=== PATIENT | female | born 1990 | race Caucasian/White ===

== ENCOUNTER 2018-08-21 19:16 | Emergency (ER) | payer OTHER ==
[~2018-08-21] VITALS: Ht 172.7 cm; Wt 150.0 kg
[2018-08-21 19:23] VITALS: Ht 172.7 cm; Wt 150.0 kg
[2018-08-21] MEDS ORDERED: HYDRALAZINE HCL25 MG PO (19:24)
[2018-08-21] MEDS ORDERED: NORVASC10 MG PO (19:24)
[2018-08-21 20:52] LABS: BASOPHILS 0.2 % (0-2); EOSINOPHILS 2.9 % (0-7); HEMATOCRIT 36.2 % (36.0-48.0); IMMATURE GRANULOCYTES 0.2 % (0-5); LYMPHOCYTES 13.6 % (15-50); MCH 26.8 pg (26.0-34.0); MCHC 33.1 g/dL (31.0-37.0); MEAN PLATELET VOLUME 10.2 fL (7.4-10.4); MONOCYTES 7.2 % (2-11); NEUTROPHILS 75.9 % (40-80); PLATELET COUNT 240 10x3/uL (130-400); RBC 4.47 10x6/uL (4.00-5.40); RDW 14.9 % (11.5-14.5); WBC 6.6 10x3/uL (4.8-10.8)
[2018-08-21 21:13] LABS: ALBUMIN 3.5 g/dL (3.4-5.0); ALKALINE PHOSPHATASE 56 U/L (46-116); ALT (SGPT) 32 U/L (10-68); CALC OSMOLALITY 282 mosm/kg (275-300); CALCIUM 8.8 mg/dL (8.5-10.1); CARBON DIOXIDE 27.4 mmol/L (21.0-32.0); CHLORIDE - SERUM 106 mmol/L (98-107); CREATININE - SERUM 0.9 mg/dL (0.6-1.3); GLUCOSE 85 mg/dL (74-106); POTASSIUM - SERUM 3.8 mmol/L (3.5-5.1); PROTEIN - SERUM 6.9 g/dL (6.4-8.2); SODIUM 143 mmol/L (136-145); TROPONIN-I < 0.017 ng/mL (0.000-0.060); UREA NITROGEN 9 mg/dL (7-18); eGFR NON AFRICAN AMERICAN 80 mL/min (90-120)
[2018-08-21 22:03] VITALS: BP 115/63
== END 2018-08-21 22:04 | disposition home or self-care (01) ==
LOC: D.ER 19:16
PROVIDERS: Family Medicine
DX: I10 Essential (primary) hypertension (principal)

== ENCOUNTER 2018-09-03 03:46 | Emergency (ER) | payer OTHER ==
[~2018-09-03] VITALS: Ht 172.7 cm; Wt 150.0 kg
[~2018-09-03 03:46] MED LIST: HYDRALAZINE HCL25 MG PO; NORVASC10 MG PO
[2018-09-03 03:47] VITALS: Ht 172.7 cm; Wt 150.0 kg
[2018-09-03] MEDS ORDERED: KLONOPIN0.5 MG PO (03:49)
[2018-09-03] MEDS ORDERED: OMEPRAZOLE20 M1 PO (03:49)
[2018-09-03] MEDS ORDERED: BYSTOLIC5 MG PO (03:49)
[2018-09-03] MEDS ORDERED: CELEXA10 MG (03:50)
[2018-09-03] MEDS ORDERED: AMBIEN10 MG (03:50)
[2018-09-03 04:49] LABS: BASOPHILS 0 % (0-2); EOSINOPHILS 1.5 % (0-7); HEMATOCRIT 38.9 % (36.0-48.0); HEMOGLOBIN 12.8 g/dL (12-16); IMMATURE GRANULOCYTES 0.1 % (0-5); LYMPHOCYTES 8.6 % (15-50); MCH 26.5 pg (26.0-34.0); MCHC 32.9 g/dL (31.0-37.0); MCV 80.5 fL (80.0-100.0); MEAN PLATELET VOLUME 10.9 fL (7.4-10.4); MONOCYTES 5.3 % (2-11); NEUTROPHILS 84.5 % (40-80); PLATELET COUNT 260 10x3/uL (130-400); RBC 4.83 10x6/uL (4.00-5.40); RDW 14.7 % (11.5-14.5); WBC 6.8 10x3/uL (4.8-10.8)
[2018-09-03 05:06] LABS: ALBUMIN 3.4 g/dL (3.4-5.0); ALKALINE PHOSPHATASE 59 U/L (46-116); ALT (SGPT) 26 U/L (10-68); BILIRUBIN - TOTAL 0.45 mg/dL (0.2-1.3); CALC OSMOLALITY 280 mosm/kg (275-300); CALCIUM 8.6 mg/dL (8.5-10.1); CARBON DIOXIDE 26.7 mmol/L (21.0-32.0); CHLORIDE - SERUM 104 mmol/L (98-107); CREATININE - SERUM 0.9 mg/dL (0.6-1.3); GLUCOSE 117 mg/dL (74-106); POTASSIUM - SERUM 3.5 mmol/L (3.5-5.1); PROTEIN - SERUM 6.9 g/dL (6.4-8.2); SODIUM 141 mmol/L (136-145); UREA NITROGEN 10 mg/dL (7-18); eGFR NON AFRICAN AMERICAN 80 mL/min (90-120)
[2018-09-03] MEDS ORDERED: CHRONULAC30 ML PO (05:58)
[2018-09-03] MEDS ORDERED: PREDNISONE20 MG PO (05:58)
[2018-09-03 06:27] VITALS: BP 139/87
[2018-09-07 13:44] VITALS: Ht 172.7 cm; Wt 150.0 kg
== END 2018-09-03 06:27 | disposition home or self-care (01) ==
LOC: D.ER 03:46
PROVIDERS: Family Medicine
DX: L50.9 Urticaria, unspecified (principal); K59.00 Constipation, unspecified

== ENCOUNTER → 2018-09-04 13:07 | Outpatient (CLI) | payer OTHER ==
[2018-09-03 03:47] VITALS: BMI 50.2
[~2018-09-04 13:07] MED LIST changes: +AMBIEN10 MG PO; +BYSTOLIC5 MG PO; +CARAFATE1 G PO; +CELEXA10 MG PO; +CHRONULAC30 ML PO; +KLONOPIN0.5 MG PO; +LINZESS145 MCG PO; +OMEPRAZOLE20 M1 PO; +PREDNISONE20 MG PO
[2018-09-07 13:44] VITALS: BMI 48.6
== END | disposition home or self-care (01) ==
LOC: D.RAD 13:07
PROVIDERS: ATTEND Internal Medicine Gastroenterology
DX: K59.00 Constipation, unspecified (principal)

== ENCOUNTER 2018-09-05 10:29 | Inpatient (IN) | payer OTHER ==
[~2018-09-05] VITALS: Ht 172.7 cm; Wt 145.1 kg
[~2018-09-05 10:29] MED LIST changes: -CARAFATE1 G PO; -LINZESS145 MCG PO
[2018-09-05 11:56] LABS: BASOPHILS 0.3 % (0-2); EOSINOPHILS 3.7 % (0-7); HEMATOCRIT 38.5 % (36.0-48.0); HEMOGLOBIN 12.6 g/dL (12-16); IMMATURE GRANULOCYTES 0.1 % (0-5); LYMPHOCYTES 12.6 % (15-50); MCH 26.5 pg (26.0-34.0); MCHC 32.7 g/dL (31.0-37.0); MCV 81.1 fL (80.0-100.0); MEAN PLATELET VOLUME 10.6 fL (7.4-10.4); MONOCYTES 7.5 % (2-11); NEUTROPHILS 75.8 % (40-80); PLATELET COUNT 269 10x3/uL (130-400); RBC 4.75 10x6/uL (4.00-5.40); WBC 7.6 10x3/uL (4.8-10.8)
[2018-09-05 12:20] VITALS: BP 152/74; BMI 48.7
[2018-09-05 12:20] LABS: ALBUMIN 3.8 g/dL (3.4-5.0); ANION GAP 10.1 mmol/L (8-16); BILIRUBIN - TOTAL 0.46 mg/dL (0.2-1.3); CALCIUM 8.8 mg/dL (8.5-10.1); CARBON DIOXIDE 29.6 mmol/L (21.0-32.0); POTASSIUM - SERUM 3.7 mmol/L (3.5-5.1); PROTEIN - SERUM 7.4 g/dL (6.4-8.2)
--- NOTE | 2018-09-05 13:28 | NUR ---
PER DR RAM NEW ORDER FOR MORPHINE 1 MG Q 4 HOURS PRN. ORDER NOTED.
[2018-09-05 19:44] VITALS: BP 154/74
--- NOTE | 2018-09-05 19:53 | NUR ---
EVENING ROUNDS COMPLETED. REPORT RECEIVED. PT SITTING UP IN BED WITH EYES OPEN, RR EVEN AND UNLABORED. PT HAS REQUESTED A JACOBSON CATHETER PLACEMENT AND HAS BEEN ORDERED BY DR TERRY. PT REQUESTED TO HAVE A FEMALE PLACE THE CATHETER, THEREFORE LUCY BATEMAN LPN HAS ENTERED ROOM TO PLACE CATHETER. PT DENIES FURTHER NEEDS AT THIS TIME. CENTRAL LINE PLACED AND PLACEMENT VERIFIED BY DR WHYTE. CALL LIGHT IN REACH. WILL CTM.
[2018-09-05 20:00] VITALS: BP 133/86
[2018-09-05 20:49] LABS: HCG URINE NEGATIVE (NEGATIVE)
[2018-09-05 22:00] VITALS: BP 139/81
[2018-09-06 04:00] VITALS: BP 130/79
[2018-09-06 04:26] LABS: BASOPHILS 0.4 % (0-2); EOSINOPHILS 2.1 % (0-7); HEMATOCRIT 35.8 % (36.0-48.0); HEMOGLOBIN 11.4 g/dL (12-16); LYMPHOCYTES 13.5 % (15-50); MCHC 31.8 g/dL (31.0-37.0); MCV 81.5 fL (80.0-100.0); MEAN PLATELET VOLUME 10.5 fL (7.4-10.4); MONOCYTES 8.7 % (2-11); NEUTROPHILS 75.3 % (40-80); PLATELET COUNT 227 10x3/uL (130-400); RBC 4.39 10x6/uL (4.00-5.40)
[2018-09-06 04:27] LABS: WBC 5.6 10x3/uL (4.8-10.8)
--- NOTE | 2018-09-06 04:37 | NUR ---
I have reviewed this patient and I concur with the Shift Assessment completed by the Licensed Practical Nurse today this shift.
[2018-09-06 04:52] LABS: ALBUMIN 3.4 g/dL (3.4-5.0); ALKALINE PHOSPHATASE 77 U/L (46-116); ALT (SGPT) 41 U/L (10-68); BILIRUBIN - TOTAL 0.57 mg/dL (0.2-1.3); CALC OSMOLALITY 285 mosm/kg (275-300); CARBON DIOXIDE 27.9 mmol/L (21.0-32.0); CHLORIDE - SERUM 108 mmol/L (98-107); CREATININE - SERUM 0.8 mg/dL (0.6-1.3); GLUCOSE 94 mg/dL (74-106); POTASSIUM - SERUM 3.8 mmol/L (3.5-5.1); PROTEIN - SERUM 6.6 g/dL (6.4-8.2); SODIUM 144 mmol/L (136-145); UREA NITROGEN 10 mg/dL (7-18); eGFR NON AFRICAN AMERICAN > 90 mL/min (90-120)
--- NOTE | 2018-09-06 05:46 | NUR ---
ADMINISTERED ORDERED ANALGESIC FOR PT COMPLAINTS OF PAIN IN ABDOMEN, PT STATES PAIN OF A 7 ON A SCALE OF 0-10. PT ALSO REPORTS INTERMITTENT COMPLAINTS OF HEARTBURN BUT NO VOMITTING SO FAR. WILL NOTIFY ONCOMING NURSE PT REPORTS TAKING OMEPRAZOLE ONCE DAILY FOR HEARTBURN.
--- NOTE | 2018-09-06 07:25 | NUR ---
RESUMING PT CARE, PT IS LAYING IN BED WITH HOB AT 35 DEGREES, ALERT AND ORIENTED X3, CALL LIGHT IN REACH. WILL CONTINUE TO MONITOR AND FOLLOW PLAN OF CARE.
--- NOTE | 2018-09-06 07:52 | NUR ---
PT C/O OF INCREASED HEARTBURN, I SPOKE TO DR TERRY AND GOT ORDERS TO CHANGE THE PROTONIX TO TID AND TO ADD CARAFATE QID. ORDERS NOTED. CT HERE TO BRING CONTRAST, WILL ADMINISTER VIA NG TUBE. CALL LIGHT IN REACH, WILL CONTINUE TO MONITOR.
--- NOTE | 2018-09-06 11:51 | NUR ---
I have reviewed this patient and I concur with the Shift Assessment completed by the Licensed Practical Nurse today this shift.
[2018-09-06 12:49] VITALS: BMI 48.6
[2018-09-06 17:26] VITALS: BP 127/58
[2018-09-06 17:36] VITALS: BP 133/60
--- NOTE | 2018-09-06 19:34 | NUR ---
EVENING ROUNDS COMPLETED. REPORT RECEIVED. PT SITTING UP IN BED WITH EYES OPEN, RR EVEN AND UNLABORED. 1600 MLS OF LIGHT YELLOW OUTPUT EMPTIED FROM JACOBSON. ORDERED FLUIDS AND ONDANSETRON INFUSING THROUGH RIGHT CHEST PICC LINE. INTRODUCED SELF TO PT. PT DENIES HAVING ANY BOWEL MOVEMENTS TODAY, ALSO DENIES HAVING ANY EPISODES OF VOMITING DURING THE DAY. PT DENIES FURTHER NEEDS OR COMPLAINTS OF PAIN. CALL LIGHT IN REACH. WILL CTM.
--- NOTE | 2018-09-06 20:05 | NUR ---
SCD'S APPLIED TO BILATERAL LOWER EXTREMITIES
[2018-09-06 21:17] VITALS: BP 136/66
--- NOTE | 2018-09-06 22:18 | NUR ---
EVENING MEDICATIONS ADMINISTERED WITHOUT ISSUE. ADMINISTERED ORDERED ANALGESIC FOR PT COMPLAINTS OF PAIN IN ABDOMEN, PT STATES PAIN OF A 6 ON A SCALE OF 0-10. SISTER AT BEDSIDE. DENIES FURTHER NEEDS AT THIS TIME. CALL LIGHT IN REACH. WILL CTM.
--- NOTE | 2018-09-07 02:40 | NUR ---
I have reviewed this patient and I concur with the Shift Assessment completed by the Licensed Practical Nurse today this shift.
--- NOTE | 2018-09-07 03:43 | NUR ---
PT SITTING UP IN BED WITH EYES CLOSED, RR EVEN AND UNLABORED. BED IN LOW POSITION. NO S/S OF DISTRESS NOTED. ORDERED IV FLUIDS INFUSING THROUGH RIGHT CHEST CENTRAL LINE. CALL LIGHT IN REACH. WILL CTM.
[2018-09-07 03:55] VITALS: BP 106/58
[2018-09-07 04:23] LABS: BASOPHILS 0.2 % (0-2); EOSINOPHILS 3.2 % (0-7); HEMATOCRIT 34.3 % (36.0-48.0); HEMOGLOBIN 11.1 g/dL (12-16); LYMPHOCYTES 17.8 % (15-50); MCH 26.3 pg (26.0-34.0); MCHC 32.4 g/dL (31.0-37.0); MCV 81.3 fL (80.0-100.0); MEAN PLATELET VOLUME 10.5 fL (7.4-10.4); MONOCYTES 8.3 % (2-11); NEUTROPHILS 70.5 % (40-80); PLATELET COUNT 205 10x3/uL (130-400); RBC 4.22 10x6/uL (4.00-5.40); RDW 14.6 % (11.5-14.5); WBC 5.6 10x3/uL (4.8-10.8)
[2018-09-07 04:39] LABS: ALBUMIN 3.2 g/dL (3.4-5.0); ALKALINE PHOSPHATASE 95 U/L (46-116); ALT (SGPT) 45 U/L (10-68); BILIRUBIN - TOTAL 0.89 mg/dL (0.2-1.3); CARBON DIOXIDE 29.3 mmol/L (21.0-32.0); CHLORIDE - SERUM 105 mmol/L (98-107); CREATININE - SERUM 0.9 mg/dL (0.6-1.3); GLUCOSE 81 mg/dL (74-106); POTASSIUM - SERUM 3.5 mmol/L (3.5-5.1); PROTEIN - SERUM 6.5 g/dL (6.4-8.2); SODIUM 143 mmol/L (136-145); eGFR NON AFRICAN AMERICAN 80 mL/min (90-120)
[2018-09-07 04:40] LABS: CALC OSMOLALITY 281 mosm/kg (275-300); UREA NITROGEN 7 mg/dL (7-18)
--- NOTE | 2018-09-07 05:11 | NUR ---
RIGHT CHEST CENTRAL LINE DRESSING CHANGED AND DATED PER FACILITY POLICY, PT RESTS COMFORTABLY IN BED WITH EYES OPEN. STATES NO EPISODES OF N/V DURING THE NIGHT. NO S/S OF DISTRESS. CALL LIGHT IN REACH. WILL CTM.
[2018-09-07 07:56] VITALS: BP 130/78
--- NOTE | 2018-09-07 11:12 | NUR ---
THIS MORNING PATIENT HAD COMPLAINED OF PAIN. TREATED HER FOR PAIN ORDERED AND PATIENT REPORTS RELIEF FROM THE DISCOMFORT IN HER LEFT ABDOMEN SHE STATES SHE DOES NOT HAVE NAUSEA AND VOMITING AT THIS TIME. TAMI JOHNSON IS INFUSING. FAMILY AT BEDSIDE. SHE IS GETTING BACK IN BED WITH ASSISTANCE AT THIS TIME. SHE HAS HAD HER SECOND BM TODAY. SHE STILL HAS A JACOBSON IN PLACE AND SHE HAD REQUESTED THE JACOBSON. WILL ASK IF SHE HAS CHANGED HER MIND ABOUT THE JACOBSON OR IF SHE WANTS TO DISCONTINUE IT. SHE IS DRINKING SPRITE AND REPORTS THAT SHE HAS BEEN HAVING THE FEELING THAT SHE JUST NEEDS TO BURP.
[2018-09-07 12:00] VITALS: BP 139/78
[2018-09-07 13:35] VITALS: BP 139/83
[2018-09-07 13:44] VITALS: Ht 172.7 cm; Wt 145.1 kg
--- NOTE | 2018-09-07 15:30 | NUR ---
PATIENT IS RESTING COMFORTABLY AT THIS TIME. DENIES ANY NEEDS AT THIS TIME.
[2018-09-07 16:00] VITALS: BP 139/76
--- NOTE | 2018-09-07 17:20 | NUR ---
PATIENT JACOBSON CATHETER REMOVED PER NURSE DRIVEN JACOBSON CATHETER REMOVAL. THE CATHETER WAS IN PLACE BECASUE THE PATIETN REQUESTED IT. HOWEVER TODAY SHE WANTED IT OUT. SHE HAS BEEN GETTING UP TO THE BATHROOM FINE ON HER OWN. 10CC OF WATER WAS REMOVED FROM THE BALLOON BEFORE REMOVAL. PATIENT TOLERATED WELL, NO DISCOMFORT NOTED. 2100 ML OF CLEAR YELLOW URINE WAS IN THE JACOBSON BAG.
--- NOTE | 2018-09-07 20:15 | NUR ---
PT SITTING UP IN BED WITH EYES OPEN, RR EVEN AND UNLABORED. BED IN LOW POSITION. NO S/S OF DISTRESS. INTRODUCED SELF TO PT. PT DENIES FURTHER NEEDS AT THIS TIME. ADMINISTERED ORDERED ANALGESIC FOR COMPLAINTS OF HEADACHE. PT STATES PAIN OF A 6 ON A SCALE OF 0-10. CALL LIGHT IN REACH. WILL CTM.
[2018-09-07 20:33] VITALS: BP 141/64
--- NOTE | 2018-09-08 01:16 | NUR ---
EVENING MEDICATIONS ADMINISTERED. ADMINISTERED ORDERED ANALGESIC FOR COMPLAINTS OF PAIN IN ABDOMEN. PT STATES PAIN OF A 9 ON A SCALE OF 0-10. MIDNIGHT BLOOD SUGAR 88. DENIES FURTHER NEEDS AT THIS TIME. CALL LIGHT IN REACH. WILL CTM.
[2018-09-08 03:55] VITALS: BP 134/81
[2018-09-08 04:37] LABS: BASOPHILS 0.2 % (0-2); EOSINOPHILS 4.2 % (0-7); HEMATOCRIT 33.8 % (36.0-48.0); HEMOGLOBIN 10.9 g/dL (12-16); LYMPHOCYTES 21.2 % (15-50); MCH 26.2 pg (26.0-34.0); MCHC 32.2 g/dL (31.0-37.0); MCV 81.3 fL (80.0-100.0); NEUTROPHILS 66.4 % (40-80); PLATELET COUNT 196 10x3/uL (130-400); RBC 4.16 10x6/uL (4.00-5.40); RDW 14.6 % (11.5-14.5); WBC 4.5 10x3/uL (4.8-10.8)
[2018-09-08 04:58] LABS: ALKALINE PHOSPHATASE 83 U/L (46-116); BILIRUBIN - TOTAL 0.69 mg/dL (0.2-1.3); CALCIUM 8.1 mg/dL (8.5-10.1); CARBON DIOXIDE 28.5 mmol/L (21.0-32.0); CHLORIDE - SERUM 108 mmol/L (98-107); CREATININE - SERUM 0.9 mg/dL (0.6-1.3); GLUCOSE 89 mg/dL (74-106); POTASSIUM - SERUM 3.5 mmol/L (3.5-5.1); PROTEIN - SERUM 6.1 g/dL (6.4-8.2); SODIUM 143 mmol/L (136-145); eGFR NON AFRICAN AMERICAN 80 mL/min (90-120)
[2018-09-08 04:59] LABS: COMPLEMENT C4 19.4 mg/dL (17.4-52.2)
[2018-09-08 05:03] LABS: ALT (SGPT) 27 U/L (10-68); CALC OSMOLALITY 280 mosm/kg (275-300); UREA NITROGEN 5 mg/dL (7-18)
--- NOTE | 2018-09-08 07:00 | NUR ---
RECEIVED REPORT. ASSUMED CARE OF PATIENT. CALL LIGHT WITHIN REACH. PATIENT RESTING IN BED, MALE VISITOR AT BEDSIDE. NO DISTRESS. IV FLUIDS TO RIGHT CHEST PICC ORDERED.
[2018-09-08 08:03] VITALS: BP 140/72
--- NOTE | 2018-09-08 08:04 | NUR ---
I have reviewed this patient and I concur with the Shift Assessment completed by the Licensed Practical Nurse today this shift.
--- NOTE | 2018-09-08 08:16 | NUR ---
BLOOD DRAW BY THIS LABORER SHAFT SINKING FOR LAB FROM CENTRAL LINE PER PROTOCOL. NO DISTRESS.
--- NOTE | 2018-09-08 10:07 | MORECARE ---
CASE MANAGEMENT DISCHARGE SUMMARY PATIENT: FEMI GARCIA UNIT: [id number] ADM DATE: 09/05/18 AGE: 28 : [birth year] SEX: F ROOM/BED: D.[facility] AUTHOR: BRIDGETT KIRKLAND PHYSICIAN: REFERRING PHYSICIAN: RANI RAM MD DATE OF SERVICE: 09/08/18 Discharge Plan Patient Name: FEMI GARCIA [facility] [facility] 1990 Planned Disposition: Home Anticipated Discharge Date: 09/10/18 Discharge Date: Expected LOS: 5 Initial Reviewer: [email or web address] Initial Review Date: 09/08/2018 Generated: 09/08/18 11:06 am DCPIA - Discharge Planning Initial Assessment Updated by [email or web address]: Karrie Yee on 09/08/18 10:05 am * Is the patient Alert and Oriented? Yes * How many steps to enter\exit or inside your home? * PCP DR. RAM * Pharmacy [facility] * Preadmission Environment Home with Family * ADLs Independent * Equipment Glucometer * List name and contact numbers for known caregivers / representatives who currently or will assist patient after discharge: JESSEE GARCIA (SISTER) [phone] * Verbal permission to speak to the caregivers and representatives has been obtained from the patient. Yes * Community resources currently utilized None * Additional services required to return to the preadmission environment? Yes * Can the patient safely return to the preadmission environment? Yes * Has this patient been hospitalized within the prior 30 days at any hospital? No Patient Name: FEMI GARCIA Page 69648 at 1007 All edits/amendments must be made on the electronic document DICTATION DATE: 09/08/18 1006 TECHNICAL SALES SUPPORT SPECIALIST: BRANDON 09/08/18 1006 RPT#: [id number] DC DATE: STATUS: ADM IN [facility] [address] [place] [address] END OF REPORT
--- NOTE | 2018-09-08 10:13 | MORECARE ---
CASE MANAGEMENT DISCHARGE SUMMARY PATIENT: FEMI GARCIA UNIT: [id number] ADM DATE: 09/05/18 AGE: 28 : [birth year] SEX: F ROOM/BED: D.2114 AUTHOR: ISAEL,DOC PHYSICIAN: REFERRING PHYSICIAN: RANI RAM MD DATE OF SERVICE: 09/08/18 Discharge Plan Patient Name: FEMI GARCIA Facility: [facility]:[place] : 1990 Planned Disposition: Home Anticipated Discharge Date: 09/10/18 Discharge Date: Expected LOS: 5 Initial Reviewer: [email or web address] Initial Review Date: 09/08/2018 Generated: 09/08/18 11:13 am Comments DCP- Discharge Planning Updated by [email or web address]: Karrie Yee on 09/08/18 9:[address] Patient Name: FEMI GARCIA Admission Status: Elective Accout number: [id number] Admission Date: 09-05-2018 : 1990 Admission Diagnosis: Attending: RANI RAM Current LOS: 3 Anticipated DC Date: 09-10-2018 Planned Disposition: Home Primary Insurance: [facility] Discharge Planning Comments: CM MET WITH PATIENT AND SISTER (JESSEE) REGARDING D/C NEEDS AND PLANS. PATIENT STATED HER MOM OR FAMILY WILL DRIVE HER HOME AT DISCHARGE. PATIENT STATED SHE HAS 2 STEPS TO ENTER HER HOME. PATIENT STATED SHE IS INDEPENDENT WITH HER CARE AND HAS A GLUCOMETER AT HOME AND CHECKS DAILY. PATIENT STATED HER PCP IS DR. RAM AND PHARMACY IS [facility]. PATIENT REFUSED HOME HEALTH AT THIS TIME. CM WILL CONTINUE TO FOLLOW PATIENT WITH D/C NEEDS AND PLANS. PCP DR. [facility] (PHARMACY) JESSEE GARCIA (SISTER) [phone] Youth Ministry Director: Karrie Yee DCPIA - Discharge Planning Initial Assessment Updated by [email or web address]: Karrie Yee on 09/08/18 10:05 am * Is the patient Alert and Oriented? Yes * How many steps to enter\exit or inside your home? * PCP DR. RAM * [facility] * Preadmission Environment Home with Family * ADLs Independent * Equipment Glucometer * List name and contact numbers for known caregivers / representatives who currently or will assist patient after discharge: JESSEE GARCIA (SISTER) [phone] * Verbal permission to speak to the caregivers and representatives has been obtained from the patient. Yes * Community resources currently utilized None * Additional services required to return to the preadmission environment? Yes * Can the patient safely return to the preadmission environment? Yes * Has this patient been hospitalized within the prior 30 days at any hospital? No Last DP export: 09/08/18 9:07 a Patient Name: FEMI GARCIA Page 31892 at 1013 All edits/amendments must be made on the electronic document DICTATION DATE: 09/08/18 1013 DRY TRANSFER MAN: BRANDON 09/08/18 1013 RPT#: [id number] DC DATE: STATUS: ADM IN [facility] [address] [place] [address] END OF REPORT
--- NOTE | 2018-09-08 12:16 | NUR ---
FSBS 96. NO INSULIN PER SLIDING SCALE.
[2018-09-08 13:25] VITALS: BP 149/57
--- NOTE | 2018-09-08 16:51 | NUR ---
MEDICATED FOR PAIN AT THIS TIME AFTER RECIEVING ORDERS FROM JOSE MADERA TO RENEW MORPHINE THAT HAD FALLEN OFF OF PATIENT EMAR.
--- NOTE | 2018-09-08 17:11 | NUR ---
FSBS 130. NO INSULIN PER SLIDING SCALE.
--- NOTE | 2018-09-08 18:32 | NUR ---
MEDICATED WITH TYLENOL FOR PAIN. PATIENT STATES THE MORPHINE DOESN'T REALLY HELP HER.
[2018-09-08 18:41] VITALS: BP 144/79
--- NOTE | 2018-09-08 19:38 | NUR ---
REPORT RECEIVED. EVENING ROUNDS COMPLETED. PT SITTING UP IN BED WITH EYES OPEN, RR EVEN AND UNLABORED. BED IN LOW POSITION. INTRODUCED SELF TO PT. PT DENIES FURTHER NEEDS, PT REPORTS NOT HAVING ANY BLOODY BOWEL MOVEMENTS DURING THE DAY NOR ANY EPISODES OF VOMITING. PT DOES REPORT SLIGHT PAIN IN LEFT SIDE OF ABDOMEN BUT CURRENTLY STATES DOES NOT REQUIRE ANALGESIC. MOTHER AT BEDSIDE. NO S/S OF DISTRESS NOTED. CALL LIGHT IN REACH. WILL CTM.
[2018-09-08 19:55] VITALS: BP 156/81
--- NOTE | 2018-09-09 01:30 | NUR ---
I have reviewed this patient and I concur with the Shift Assessment completed by the Licensed Practical Nurse today this shift.
[2018-09-09 03:55] VITALS: BP 121/67
[2018-09-09 04:07] LABS: BASOPHILS 0.4 % (0-2); EOSINOPHILS 4.5 % (0-7); HEMATOCRIT 34.4 % (36.0-48.0); HEMOGLOBIN 11.3 g/dL (12-16); IMMATURE GRANULOCYTES 0.2 % (0-5); LYMPHOCYTES 19.9 % (15-50); MCH 26.3 pg (26.0-34.0); MCHC 32.8 g/dL (31.0-37.0); MCV 80.2 fL (80.0-100.0); MEAN PLATELET VOLUME 10.9 fL (7.4-10.4); MONOCYTES 7.8 % (2-11); NEUTROPHILS 67.2 % (40-80); PLATELET COUNT 219 10x3/uL (130-400); RBC 4.29 10x6/uL (4.00-5.40); RDW 14.9 % (11.5-14.5); WBC 5.5 10x3/uL (4.8-10.8)
[2018-09-09 04:15] LABS: INR 1.15 (0.85-1.17); PROTIME 14.2 SECONDS (11.6-15.0)
[2018-09-09 04:23] LABS: ALBUMIN 3.1 g/dL (3.4-5.0); ALKALINE PHOSPHATASE 81 U/L (46-116); ALT (SGPT) 27 U/L (10-68); BILIRUBIN - TOTAL 0.58 mg/dL (0.2-1.3); CALC OSMOLALITY 277 mosm/kg (275-300); CALCIUM 8.3 mg/dL (8.5-10.1); CHLORIDE - SERUM 106 mmol/L (98-107); CREATININE - SERUM 0.8 mg/dL (0.6-1.3); GLUCOSE 88 mg/dL (74-106); POTASSIUM - SERUM 3.3 mmol/L (3.5-5.1); PROTEIN - SERUM 6.4 g/dL (6.4-8.2); SODIUM 142 mmol/L (136-145); eGFR NON AFRICAN AMERICAN > 90 mL/min (90-120)
[2018-09-09 04:24] LABS: UREA NITROGEN 2 mg/dL (7-18)
--- NOTE | 2018-09-09 05:10 | NUR ---
3.3 POTASSIUM TREATED ORDERED WITH IV POTASSIUM PT IS CURRENTLY NPO FOR SCHEDULED PROCEDURE
--- NOTE | 2018-09-09 08:00 | NUR ---
RECIEVED BEDSIDE REPORT. AM ROUNDS COMPLETED. VSS, AAOX4, NO S/S OF RR DISTRESS, RR EVEN AND UNLABORED, RIGHT SC PICC LINE. PT CURRENLTY NPO, AWAITING EGD. AM MEDS GIVEN. MOTHER AT BEDSIDE. PT DENIES ANY FURTHER NEEDS AT THIS TIME. WILL CTM. CL IN REACH, BED INN LOW, SR UP X2.
[2018-09-09 09:11] VITALS: BP 130/58
[2018-09-09 12:15] VITALS: BP 142/57
--- NOTE | 2018-09-09 12:40 | NUR ---
PT BLOOD SUGAR 93. NO INSULIN GIVEN AT THIS TIME PER SLIDING SCALE. PT STILL NPO AWAITING PROCEDURE. WILL CTM.
[2018-09-09] MEDS ORDERED: CARAFATE1 G PO (16:18)
[2018-09-09] MEDS ORDERED: LINZESS145 MCG PO (16:18)
--- NOTE | 2018-09-09 18:01 | NUR ---
PT CVL CATHETER REMOVED. CATHETER TIP INTACT. NO S/S OF BLEEDING. COVERED SITE WITH 4X4 GAUZE AND TAPE. DISCHARGE INSTRUCTION READ TO PT AND PT MOTHER. PT VERBALIZED UNDERSTANDING. ALL PT BELONGINGINGS SENT HOME WITH PT MOTHER. PT WHEELED DOWNSTAIRS. PT DC'D.
--- NOTE | 2018-09-10 07:44 | MORECARE ---
CASE MANAGEMENT DISCHARGE SUMMARY PATIENT: FEMI GARCIA UNIT: [id number] ADM DATE: 09/05/18 AGE: 28 : [birth year] SEX: F ROOM/BED: D.2112 AUTHOR: ISAEL,DOC PHYSICIAN: REFERRING PHYSICIAN: RANI RAM MD DATE OF SERVICE: 09/10/18 Discharge Plan Patient Name: FEMI GARCIA Facility: [facility]:[place] : 1990 Planned Disposition: Home Anticipated Discharge Date: 09/09/18 Discharge Date: 09/09/2018 Expected LOS: 4 Initial Reviewer: [email or web address] Initial Review Date: 09/08/2018 Generated: 09/10/18 8:44 am Comments DCP- Discharge Planning Updated by [email or web address]: Karrie Yee on 09/08/18 9:[address] Patient Name: FEMI GARCIA Admission Status: Elective Accout number: [id number] Admission Date: 09-05-2018 : 1990 Admission Diagnosis: Attending: RANI RAM Current LOS: 3 Anticipated DC Date: 09-10-2018 Planned Disposition: Home Primary Insurance: [facility] Discharge Planning Comments: CM MET WITH PATIENT AND SISTER (JESSEE) REGARDING D/C NEEDS AND PLANS. PATIENT STATED HER MOM OR FAMILY WILL DRIVE HER HOME AT DISCHARGE. PATIENT STATED SHE HAS 2 STEPS TO ENTER HER HOME. PATIENT STATED SHE IS INDEPENDENT WITH HER CARE AND HAS A GLUCOMETER AT HOME AND CHECKS DAILY. PATIENT STATED HER PCP IS DR. RAM AND PH[facility]ACY IS [facility]. PATIENT REFUSED HOME HEALTH AT THIS TIME. CM WILL CONTINUE TO FOLLOW PATIENT WITH D/C NEEDS AND PLANS. PCP DR. [facility] (PHARMACY) JESSEE GARCIA (SISTER) [phone] Mrb Engineer: Karrie Yee DCPIA - Discharge Planning Initial Assessment Updated by [email or web address]: Karrie Yee on 09/08/18 10:05 am * Is the patient Alert and Oriented? Yes * How many steps to enter\exit or inside your home? * PCP DR. RAM * Pharmacy [facility] * Preadmission Environment Home with Family * ADLs Independent * Equipment Glucometer * List name and contact numbers for known caregivers / representatives who currently or will assist patient after discharge: JESSEE GARCIA (SISTER) [phone] * Verbal permission to speak to the caregivers and representatives has been obtained from the patient. Yes * Community resources currently utilized None * Additional services required to return to the preadmission environment? Yes * Can the patient safely return to the preadmission environment? Yes * Has this patient been hospitalized within the prior 30 days at any hospital? No Last DP export: 09/08/18 9:13 a Patient Name: FEMI GARCIA Page 51850 at 0744 All edits/amendments must be made on the electronic document DICTATION DATE: 09/10/18742 CHIEF CRUISER: BRANDON 09/10/1843 RPT#: [id number] DC DATE:09/09/18 STATUS: DIS IN [facility] [address] [place] [address] END OF REPORT
[2018-09-10 13:15] LABS: CYTOMEGALOVIRUS AB IGG >10.00 U/mL (0.00-0.59); EBV - EARLY ANTIGEN AB IGG <9.0 U/mL (0.0-8.9); EBV - NUCLEAR ANTIGEN AB IGG >600.0 U/mL (0.0-17.9); EBV VIRAL CAPSID AB IGM <36.0 U/mL (0.0-35.9)
[2018-09-10 16:09] LABS: ANTICHROMATIN ANTIBODIES <0.2 AI (0.0-0.9); DOUBLE-STRANDED DNA ABS 1 IU/mL (0-9); RNP ANTIBODY <0.2 AI (0.0-0.9); SJOGRENS AB SSA <0.2 AI (0.0-0.9); SJOGRENS AB SSB <0.2 AI (0.0-0.9); SMITH ANTIBODY <0.2 AI (0.0-0.9)
== END 2018-09-09 18:05 | disposition home or self-care (01) | DRG 389 ==
LOC: D.M2 10:29
PROVIDERS: Emergency Medicine; Internal Medicine Gastroenterology; Internal Medicine Hematology & Oncology; ADMIT Family Medicine; ATTEND Family Medicine
PROC: 05H533Z Insertion of Infusion Device into Right Subclavian Vein, Percutaneous Approach (ICD-10-PCS; principal; 2018-09-05)
PROC: 0D9670Z Drainage of Stomach with Drainage Device, Via Natural or Artificial Opening (ICD-10-PCS; 2018-09-05)
PROC: 0DB68ZX Excision of Stomach, Via Natural or Artificial Opening Endoscopic, Diagnostic (ICD-10-PCS; 2018-09-09)
PROC: 0DJD8ZZ Inspection of Lower Intestinal Tract, Via Natural or Artificial Opening Endoscopic (ICD-10-PCS; 2018-09-09)
DX: K56.7 Ileus, unspecified (principal); Z68.42 Body mass index [BMI] 45.0-49.9, adult; K31.84 Gastroparesis; R16.1 Splenomegaly, not elsewhere classified; I10 Essential (primary) hypertension; K21.9 Gastro-esophageal reflux disease without esophagitis; E66.9 Obesity, unspecified; K59.09 Other constipation; K64.8 Other hemorrhoids; E28.2 Polycystic ovarian syndrome

== ENCOUNTER 2018-09-15 20:32 | Emergency (ER) | payer OTHER ==
[~2018-09-15] VITALS: Ht 172.7 cm; Wt 139.3 kg
[~2018-09-15 20:32] MED LIST changes: +CARAFATE1 G PO; +LINZESS145 MCG PO
[2018-09-15 20:36] VITALS: Ht 172.7 cm; Wt 139.3 kg
[2018-09-15] MEDS ORDERED: GLUCOPHAGE500 MG PO (20:37)
[2018-09-15] MEDS ORDERED: NORVASC2.5 MG PO (20:37)
[2018-09-15 21:10] LABS: BASOPHILS 0.6 % (0-2); EOSINOPHILS 2.8 % (0-7); HEMATOCRIT 38.7 % (36.0-48.0); IMMATURE GRANULOCYTES 0.1 % (0-5); LYMPHOCYTES 17.3 % (15-50); MCH 26.8 pg (26.0-34.0); MCHC 33.6 g/dL (31.0-37.0); MCV 79.8 fL (80.0-100.0); MEAN PLATELET VOLUME 11.4 fL (7.4-10.4); MONOCYTES 8.7 % (2-11); NEUTROPHILS 70.5 % (40-80); PLATELET COUNT 241 10x3/uL (130-400); RBC 4.85 10x6/uL (4.00-5.40); RDW 15.1 % (11.5-14.5); WBC 7.1 10x3/uL (4.8-10.8)
[2018-09-15 21:25] LABS: ALBUMIN 4.1 g/dL (3.4-5.0); ALKALINE PHOSPHATASE 72 U/L (46-116); ALT (SGPT) 34 U/L (10-68); BILIRUBIN - TOTAL 0.71 mg/dL (0.2-1.3); CALC OSMOLALITY 273 mosm/kg (275-300); CARBON DIOXIDE 24.3 mmol/L (21.0-32.0); CHLORIDE - SERUM 101 mmol/L (98-107); CREATININE - SERUM 0.9 mg/dL (0.6-1.3); GLUCOSE 78 mg/dL (74-106); POTASSIUM - SERUM 3.1 mmol/L (3.5-5.1); PROTEIN - SERUM 7.7 g/dL (6.4-8.2); SODIUM 139 mmol/L (136-145); UREA NITROGEN 5 mg/dL (7-18); eGFR NON AFRICAN AMERICAN 80 mL/min (90-120)
[2018-09-15] MEDS ORDERED: CHRONULAC30 ML PO (21:27)
[2018-09-15] MEDS ORDERED: ZOFRAN ODT4 MG/UDTAB PO (21:27)
[2018-09-15 21:31] LABS: AMYLASE - SERUM 38 U/L (25-115); LIPASE 144 U/L (73-393)
[2018-09-15 21:41] LABS: TROPONIN-I < 0.017 ng/mL (0.000-0.060)
[2018-09-15 22:20] VITALS: BP 144/76
[2018-09-15 22:24] LABS: HCG URINE NEGATIVE (NEGATIVE)
== END 2018-09-15 22:20 | disposition home or self-care (01) ==
LOC: D.ER 20:32
PROVIDERS: Family Medicine
DX: R11.0 Nausea (principal); K59.00 Constipation, unspecified

== ENCOUNTER → 2018-09-18 09:05 | Outpatient (CLI) | payer OTHER ==
[2018-09-15 20:36] VITALS: BMI 48.6
[~2018-09-18 09:05] MED LIST changes: +ATIVAN1 MG PO; +GLUCOPHAGE500 MG PO; +NORVASC2.5 MG PO; +ZOFRAN ODT4 MG/UDTAB PO
--- NOTE | 2018-09-21 09:58 | EC ---
PATIENT:FEMI GARCIA DATE OF SERVICE: 09/18/18 SEX: F MEDICAL RECORD: [id number] DATE OF : [birth year] LOCATION:D.[facility] AGE OF PATIENT: 28 ADMISSION DATE: 09/18/18 REFERRING PHYSICIAN: INTERPRETING PHYSICIAN: FLORA CEDENO MD ECHOCARDIOGRAM REPORT ECHO CHARGES 4 ECHO COMPLETE Date: 09/18/18 CLINICAL DIAGNOSIS: HTN,MURMUR HX OF HTN ECHOCARDIOGRAPHIC MEASUREMENTS (adult normal given) AC root (d.<3.7cm) 3.7 cm LV Septum d (<1.2 cm> 1.1 cm Valve Excursion 2.0 cm LV Septum (systole) 1.4 cm Left Atria (s.<4.0cm> 3.7 cm LVPW d(<1.2cm) 1.5 cm RV (d.<2.3cm) 3.7 cm LVPW (sytole) 1.6 cm LV diastole(<5.6CM) 5.4 cm MV E-F(>70mm/sec) cm LV systole 4.0 cm LVOT Diameter 2.0 cm MV exc.(>10mm) cm Est.ejection fraction (50-75%) % DOPPLER: LVIT cm/sec A 107 cm/sec E 89.0 cm/sec LA cm/sec RVSP 24 mmHg LVOT 105 cm/sec AOP1/2T m/s Asc. Ao 153 cm/sec RVOT 79 cm/sec RA cm/sec PA 110 cm/sec AV Gradient Peak 9.40 mmHg AV Mean 5.26 mmHg AV Area 2.4 cm MV Gradient Peak 4.45 mmHg MV Mean 2.08 mmHg MV Area cm COMMENTS: Manager Plant: 2 [place] Art Critic: 3 Dr. Severino TAPE# PACS Pericardial Effusion N DATE OF SERVICE: Adequate 2D echo, color Doppler, spectral Doppler, and M-mode. No LVH. LV internal dimension is normal. Wall motion is normal. EF is greater than or equal to 55%. Aortic valve is tricuspid. No evidence of stenosis by Doppler interrogation. Left atrium is normal. Mitral valve shows no prolapse. Trace MR. Right-sided chambers grossly normal. Trace TR. TRANSINT:[id number] Voice Confirmation ID: [id number] DOCUMENT ID: [id number] ECHOCARDIOGRAM REPORT [id number] FEMI GARCIA FLORA CEDENO MD at 0958 CC: [id number] DICTATION DATE: 09/19/18 1303 URBAN PLANNER: 09/19/18 1356 DEP CLI 09/18/18 [id number] [place] [address]
== END | disposition home or self-care (01) ==
LOC: D.HCCARDIO 09:05
PROVIDERS: ATTEND Internal Medicine Interventional Cardiology
DX: I10 Essential (primary) hypertension (principal)

== ENCOUNTER 2018-09-18 19:19 | Emergency (ER) | payer OTHER ==
[~2018-09-18] VITALS: Ht 172.7 cm; Wt 138.2 kg
[~2018-09-18 19:19] MED LIST changes: -ATIVAN1 MG PO
[2018-09-18 19:21] VITALS: Ht 172.7 cm; Wt 138.2 kg
[2018-09-18 20:47] LABS: BASOPHILS 0.3 % (0-2); EOSINOPHILS 2.2 % (0-7); HEMATOCRIT 37.4 % (36.0-48.0); HEMOGLOBIN 12.8 g/dL (12-16); IMMATURE GRANULOCYTES 0.2 % (0-5); LYMPHOCYTES 20.4 % (15-50); MCH 26.9 pg (26.0-34.0); MCHC 34.2 g/dL (31.0-37.0); MCV 78.6 fL (80.0-100.0); MEAN PLATELET VOLUME 11.5 fL (7.4-10.4); MONOCYTES 11.1 % (2-11); NEUTROPHILS 65.8 % (40-80); PLATELET COUNT 276 10x3/uL (130-400); RBC 4.76 10x6/uL (4.00-5.40); RDW 15.4 % (11.5-14.5); WBC 5.8 10x3/uL (4.8-10.8)
[2018-09-18 21:00] LABS: ALKALINE PHOSPHATASE 68 U/L (46-116); ALT (SGPT) 56 U/L (10-68); BILIRUBIN - TOTAL 0.58 mg/dL (0.2-1.3); CALC OSMOLALITY 276 mosm/kg (275-300); CALCIUM 9.3 mg/dL (8.5-10.1); CARBON DIOXIDE 22.5 mmol/L (21.0-32.0); CHLORIDE - SERUM 103 mmol/L (98-107); CREATININE - SERUM 0.8 mg/dL (0.6-1.3); GLUCOSE 87 mg/dL (74-106); POTASSIUM - SERUM 3.2 mmol/L (3.5-5.1); PROTEIN - SERUM 7.5 g/dL (6.4-8.2); SODIUM 141 mmol/L (136-145); UREA NITROGEN 4 mg/dL (7-18); eGFR NON AFRICAN AMERICAN > 90 mL/min (90-120)
[2018-09-18 23:39] LABS: APPEARANCE CLEAR (CLEAR); BILIRUBIN NEGATIVE (NEGATIVE); COLOR YELLOW (YELLOW); GLUCOSE NEGATIVE (NEGATIVE); KETONE LARGE mg/dL (NEGATIVE); NITRITE NEGATIVE (NEGATIVE); PROTEIN NEGATIVE (NEGATIVE); UROBILINOGEN NORMAL (NORMAL)
[2018-09-19 00:02] VITALS: BP 148/83
== END 2018-09-19 00:13 | disposition home or self-care (01) ==
LOC: D.ER 19:19
PROVIDERS: Emergency Medicine
DX: R55 Syncope and collapse (principal); E86.0 Dehydration; E16.2 Hypoglycemia, unspecified

== ENCOUNTER 2018-09-22 15:06 | Emergency (ER) | payer OTHER ==
[~2018-09-22] VITALS: Ht 172.7 cm; Wt 141.4 kg
[2018-09-22 15:23] VITALS: Ht 172.7 cm; Wt 141.4 kg
[2018-09-22 15:59] LABS: BASOPHILS 0.5 % (0-2); EOSINOPHILS 5.5 % (0-7); HEMATOCRIT 37.8 % (36.0-48.0); HEMOGLOBIN 12.6 g/dL (12-16); IMMATURE GRANULOCYTES 0.5 % (0-5); LYMPHOCYTES 14.7 % (15-50); MCH 26.7 pg (26.0-34.0); MCHC 33.3 g/dL (31.0-37.0); MCV 80.1 fL (80.0-100.0); MEAN PLATELET VOLUME 11.9 fL (7.4-10.4); MONOCYTES 10.9 % (2-11); NEUTROPHILS 67.9 % (40-80); RBC 4.72 10x6/uL (4.00-5.40); RDW 15.6 % (11.5-14.5); WBC 4.2 10x3/uL (4.8-10.8)
[2018-09-22 16:04] LABS: PLATELET COUNT 188 10x3/uL (130-400)
[2018-09-22 16:05] LABS: APPEARANCE CLEAR (CLEAR); BILIRUBIN NEGATIVE (NEGATIVE); COLOR YELLOW (YELLOW); GLUCOSE NEGATIVE (NEGATIVE); KETONE NEGATIVE (NEGATIVE); NITRITE NEGATIVE (NEGATIVE); PROTEIN NEGATIVE (NEGATIVE); UROBILINOGEN NORMAL (NORMAL)
[2018-09-22 16:22] LABS: ALBUMIN 3.7 g/dL (3.4-5.0); ALKALINE PHOSPHATASE 65 U/L (46-116); ALT (SGPT) 82 U/L (10-68); AMYLASE - SERUM 31 U/L (25-115); BILIRUBIN - TOTAL 0.49 mg/dL (0.2-1.3); CALC OSMOLALITY 279 mosm/kg (275-300); CALCIUM 8.5 mg/dL (8.5-10.1); CARBON DIOXIDE 25.8 mmol/L (21.0-32.0); CHLORIDE - SERUM 106 mmol/L (98-107); CREATININE - SERUM 0.8 mg/dL (0.6-1.3); GLUCOSE 95 mg/dL (74-106); LIPASE 167 U/L (73-393); POTASSIUM - SERUM 4.5 mmol/L (3.5-5.1); PROTEIN - SERUM 6.9 g/dL (6.4-8.2); SODIUM 142 mmol/L (136-145); UREA NITROGEN 3 mg/dL (7-18); eGFR NON AFRICAN AMERICAN > 90 mL/min (90-120)
[2018-09-22] MEDS ORDERED: ATIVAN1 MG PO (17:15)
[2018-09-22 18:17] VITALS: BP 120/77
== END 2018-09-22 18:18 | disposition home or self-care (01) ==
LOC: D.ER 15:06
PROVIDERS: Emergency Medicine
DX: R10.9 Unspecified abdominal pain (principal); K59.00 Constipation, unspecified; R11.10 Vomiting, unspecified

== ENCOUNTER 2018-09-25 21:32 | Inpatient (IN) | payer OTHER ==
[~2018-09-25] VITALS: Ht 172.7 cm; Wt 140.6 kg
[~2018-09-25 21:32] MED LIST changes: +ATIVAN1 MG PO
[2018-09-25 21:56] LABS: BASOPHILS 0.2 % (0-2); EOSINOPHILS 7.1 % (0-7); HEMATOCRIT 39.9 % (36.0-48.0); HEMOGLOBIN 13.1 g/dL (12-16); LYMPHOCYTES 23.4 % (15-50); MCH 26.7 pg (26.0-34.0); MCHC 32.8 g/dL (31.0-37.0); MCV 81.4 fL (80.0-100.0); MEAN PLATELET VOLUME 11.6 fL (7.4-10.4); MONOCYTES 7.8 % (2-11); NEUTROPHILS 61.5 % (40-80); RDW 15.5 % (11.5-14.5); WBC 5.8 10x3/uL (4.8-10.8)
[2018-09-25 21:57] LABS: PLATELET COUNT 238 10x3/uL (130-400)
[2018-09-25 22:01] LABS: APPEARANCE CLEAR (CLEAR); BILIRUBIN NEGATIVE (NEGATIVE); COLOR YELLOW (YELLOW); GLUCOSE NEGATIVE (NEGATIVE); HCG URINE NEGATIVE (NEGATIVE); KETONE NEGATIVE (NEGATIVE); NITRITE NEGATIVE (NEGATIVE); PROTEIN NEGATIVE (NEGATIVE); SPECIFIC GRAVITY 1.025 (1.005-1.020); UROBILINOGEN NORMAL (NORMAL)
[2018-09-25 22:22] LABS: ALBUMIN 3.5 g/dL (3.4-5.0); ALKALINE PHOSPHATASE 61 U/L (46-116); ALT (SGPT) 60 U/L (10-68); BILIRUBIN - TOTAL 0.33 mg/dL (0.2-1.3); CALC OSMOLALITY 290 mosm/kg (275-300); CALCIUM 8.5 mg/dL (8.5-10.1); CARBON DIOXIDE 25.5 mmol/L (21.0-32.0); CHLORIDE - SERUM 110 mmol/L (98-107); CREATININE - SERUM 0.9 mg/dL (0.6-1.3); GLUCOSE 126 mg/dL (74-106); POTASSIUM - SERUM 4.1 mmol/L (3.5-5.1); PROTEIN - SERUM 6.7 g/dL (6.4-8.2); SODIUM 146 mmol/L (136-145); UREA NITROGEN 6 mg/dL (7-18); eGFR NON AFRICAN AMERICAN 80 mL/min (90-120)
[2018-09-25 22:26] LABS: AMYLASE - SERUM 43 U/L (25-115); LIPASE 221 U/L (73-393); TROPONIN-I < 0.017 ng/mL (0.000-0.060)
[2018-09-26 03:08] VITALS: BP 137/86; BMI 47.2
[2018-09-26 05:16] VITALS: BP 137/86
[2018-09-26 08:27] LABS: BASOPHILS 0.3 % (0-2); EOSINOPHILS 6.2 % (0-7); HEMATOCRIT 37.4 % (36.0-48.0); HEMOGLOBIN 12.2 g/dL (12-16); LYMPHOCYTES 17.7 % (15-50); MCH 26.3 pg (26.0-34.0); MCHC 32.6 g/dL (31.0-37.0); MCV 80.8 fL (80.0-100.0); MEAN PLATELET VOLUME 11.1 fL (7.4-10.4); NEUTROPHILS 67.8 % (40-80); RBC 4.63 10x6/uL (4.00-5.40); RDW 15.5 % (11.5-14.5)
[2018-09-26 08:33] LABS: ALBUMIN 3.3 g/dL (3.4-5.0); ALKALINE PHOSPHATASE 53 U/L (46-116); ALT (SGPT) 55 U/L (10-68); BILIRUBIN - TOTAL 0.42 mg/dL (0.2-1.3); CALC OSMOLALITY 285 mosm/kg (275-300); CALCIUM 8.4 mg/dL (8.5-10.1); CARBON DIOXIDE 26.6 mmol/L (21.0-32.0); CHLORIDE - SERUM 110 mmol/L (98-107); CREATININE - SERUM 0.8 mg/dL (0.6-1.3); GLUCOSE 101 mg/dL (74-106); POTASSIUM - SERUM 4.2 mmol/L (3.5-5.1); PROTEIN - SERUM 6.3 g/dL (6.4-8.2); SODIUM 145 mmol/L (136-145); eGFR NON AFRICAN AMERICAN > 90 mL/min (90-120)
[2018-09-26 08:34] LABS: UREA NITROGEN 4 mg/dL (7-18)
[2018-09-26 08:36] LABS: PLATELET COUNT 186 10x3/uL (130-400); WBC 3.9 10x3/uL (4.8-10.8)
[2018-09-26 09:05] VITALS: BP 141/80
[2018-09-26 12:47] VITALS: BP 130/77
[2018-09-26 14:50] VITALS: Ht 172.7 cm; Wt 140.6 kg
[2018-09-26 17:24] VITALS: BP 142/87
[2018-09-26 20:34] VITALS: BP 140/68
[2018-09-27 05:15] VITALS: BP 120/76
[2018-09-27 06:12] LABS: ALBUMIN 2.9 g/dL (3.4-5.0); ALKALINE PHOSPHATASE 48 U/L (46-116); ALT (SGPT) 47 U/L (10-68); BILIRUBIN - TOTAL 0.43 mg/dL (0.2-1.3); CALC OSMOLALITY 286 mosm/kg (275-300); CARBON DIOXIDE 26.1 mmol/L (21.0-32.0); CHLORIDE - SERUM 112 mmol/L (98-107); CREATININE - SERUM 0.8 mg/dL (0.6-1.3); GLUCOSE 87 mg/dL (74-106); POTASSIUM - SERUM 3.9 mmol/L (3.5-5.1); PROTEIN - SERUM 5.6 g/dL (6.4-8.2); SODIUM 146 mmol/L (136-145); T4 THYROXIN - FREE 0.91 ng/dL (0.76-1.46); THYROID STIMULATING HORMONE 1.24 uIU/mL (0.36-3.74); UREA NITROGEN 3 mg/dL (7-18); eGFR NON AFRICAN AMERICAN > 90 mL/min (90-120)
[2018-09-27 06:37] LABS: BASOPHILS 0.3 % (0-2); EOSINOPHILS 8.5 % (0-7); HEMATOCRIT 34.9 % (36.0-48.0); HEMOGLOBIN 11.3 g/dL (12-16); LYMPHOCYTES 26.5 % (15-50); MCH 26.6 pg (26.0-34.0); MCHC 32.4 g/dL (31.0-37.0); MCV 82.1 fL (80.0-100.0); MEAN PLATELET VOLUME 11.9 fL (7.4-10.4); MONOCYTES 12.9 % (2-11); NEUTROPHILS 51.8 % (40-80); PLATELET COUNT 168 10x3/uL (130-400); RBC 4.25 10x6/uL (4.00-5.40); RDW 15.6 % (11.5-14.5); WBC 3.2 10x3/uL (4.8-10.8)
[2018-09-27 08:31] VITALS: BP 135/87
[2018-09-27 08:35] LABS: UDS - AMPHET NEGATIVE QUAL (NEGATIVE); UDS - BARB NEGATIVE QUAL (NEGATIVE); UDS - BENZO NEGATIVE QUAL (NEGATIVE); UDS - COCAINE NEGATIVE QUAL (NEGATIVE); UDS - OPIATE NEGATIVE QUAL (NEGATIVE); UDS - PCP NEGATIVE QUAL (NEGATIVE); UDS - THC NEGATIVE QUAL (NEGATIVE)
[2018-09-27 16:44] VITALS: BP 132/70
[2018-09-27 20:01] VITALS: BP 117/73
[2018-09-28 04:57] VITALS: BP 131/79
[2018-09-28 05:40] LABS: BASOPHILS 0.3 % (0-2); EOSINOPHILS 6.9 % (0-7); HEMATOCRIT 36.6 % (36.0-48.0); HEMOGLOBIN 11.7 g/dL (12-16); LYMPHOCYTES 24.2 % (15-50); MCH 26.1 pg (26.0-34.0); MCV 81.7 fL (80.0-100.0); MEAN PLATELET VOLUME 11.2 fL (7.4-10.4); MONOCYTES 10.6 % (2-11); PLATELET COUNT 171 10x3/uL (130-400); RBC 4.48 10x6/uL (4.00-5.40); RDW 15.2 % (11.5-14.5); WBC 3.6 10x3/uL (4.8-10.8)
[2018-09-28 05:50] LABS: CALC OSMOLALITY 280 mosm/kg (275-300); CALCIUM 8.2 mg/dL (8.5-10.1); CARBON DIOXIDE 27.3 mmol/L (21.0-32.0); CHLORIDE - SERUM 108 mmol/L (98-107); CREATININE - SERUM 0.9 mg/dL (0.6-1.3); GLUCOSE 86 mg/dL (74-106); POTASSIUM - SERUM 3.6 mmol/L (3.5-5.1); SODIUM 143 mmol/L (136-145); eGFR NON AFRICAN AMERICAN 80 mL/min (90-120)
[2018-09-28 05:59] LABS: UREA NITROGEN 4 mg/dL (7-18)
[2018-09-28 09:06] VITALS: BP 128/60
[2018-09-28 13:53] VITALS: BP 109/67
[2018-09-28 16:24] VITALS: BP 125/70
[2018-09-28 20:25] VITALS: BP 141/73
[2018-09-29 03:41] VITALS: BP 108/56
[2018-09-29 05:16] LABS: BASOPHILS 0.3 % (0-2); EOSINOPHILS 6.8 % (0-7); HEMATOCRIT 35.9 % (36.0-48.0); HEMOGLOBIN 11.6 g/dL (12-16); LYMPHOCYTES 27.4 % (15-50); MCHC 32.3 g/dL (31.0-37.0); MCV 80.3 fL (80.0-100.0); MEAN PLATELET VOLUME 11.5 fL (7.4-10.4); MONOCYTES 12.5 % (2-11); PLATELET COUNT 157 10x3/uL (130-400); RBC 4.47 10x6/uL (4.00-5.40); RDW 15.1 % (11.5-14.5); WBC 3.7 10x3/uL (4.8-10.8)
[2018-09-29 05:32] LABS: CALC OSMOLALITY 286 mosm/kg (275-300); CALCIUM 8.3 mg/dL (8.5-10.1); CARBON DIOXIDE 27.6 mmol/L (21.0-32.0); CHLORIDE - SERUM 110 mmol/L (98-107); CREATININE - SERUM 0.9 mg/dL (0.6-1.3); GLUCOSE 84 mg/dL (74-106); POTASSIUM - SERUM 3.7 mmol/L (3.5-5.1); SODIUM 146 mmol/L (136-145); UREA NITROGEN 4 mg/dL (7-18); eGFR NON AFRICAN AMERICAN 80 mL/min (90-120)
[2018-09-29 09:08] VITALS: BP 133/77
--- NOTE | 2018-10-01 10:57 | MORECARE ---
CASE MANAGEMENT DISCHARGE SUMMARY PATIENT: FEMI GARCIA UNIT: [id number] ADM DATE: 09/26/18 AGE: 28 : [birth year] SEX: F ROOM/BED: D.2239 AUTHOR: BRIDGETT KIRKLAND PHYSICIAN: REFERRING PHYSICIAN: KORINA CARDOSO MD DATE OF SERVICE: 10/01/18 Discharge Plan Patient Name: FEMI GARCIA [facility] [facility] 1990 Planned Disposition: Home Anticipated Discharge Date: Discharge Date: 09/29/2018 Expected LOS: 0 Initial Reviewer: [email or web address] Initial Review Date: 10/01/2018 Generated: 10/01/18 8:02 am Patient Name: FEMI GARCIA Page 25861 at 1057 All edits/amendments must be made on the electronic document DICTATION DATE: 10/01/18701 WOOD PILER: DM 10/01/18701 RPT#: [id number] DC DATE:09/29/18 STATUS: DIS IN [facility] [address] [facility] [place] [address] END OF REPORT
== END 2018-09-29 13:20 | disposition home or self-care (01) | DRG 74 ==
LOC: D.ER 21:32 → D.MS 09-26 00:49 → D.EDHOLD 09-26 00:49 → D.MS 09-26 01:20
PROVIDERS: Family Medicine; Internal Medicine Gastroenterology; ADMIT Internal Medicine Nephrology; ATTEND Internal Medicine Nephrology
DX: E11.43 Type 2 diabetes mellitus with diabetic autonomic (poly)neuropathy (principal); K31.84 Gastroparesis; I10 Essential (primary) hypertension

== ENCOUNTER 2018-10-12 20:36 | Emergency (ER) | payer OTHER ==
[~2018-10-12] VITALS: Ht 172.7 cm; Wt 145.1 kg
[2018-10-12 20:40] VITALS: Ht 172.7 cm; Wt 145.1 kg
[2018-10-12 21:38] VITALS: BP 128/82
[2018-10-13] MEDS ORDERED: DIOVAN40 MG PO (20:07)
[2018-10-13] MEDS ORDERED: CYMBALTA60 MG PO (20:07)
[2018-10-13] MEDS ORDERED: TOPAMAX50 MG PO (20:08)
[2018-10-13] MEDS ORDERED: VALIUM10 MG PO (20:09)
== END 2018-10-12 21:38 | disposition home or self-care (01) ==
LOC: D.ER 20:36
DX: K59.09 Other constipation (principal); E11.9 Type 2 diabetes mellitus without complications; I10 Essential (primary) hypertension; E66.01 Morbid (severe) obesity due to excess calories

== ENCOUNTER 2018-10-13 19:59 | Emergency (ER) | payer OTHER ==
[~2018-10-13] VITALS: Ht 172.7 cm; Wt 137.7 kg
[2018-10-13 20:06] VITALS: Ht 172.7 cm; Wt 137.7 kg
[2018-10-13] MEDS ORDERED: CYMBALTA60 MG PO (20:07)
[2018-10-13] MEDS ORDERED: DIOVAN40 MG PO (20:07)
[2018-10-13] MEDS ORDERED: TOPAMAX50 MG PO (20:08)
[2018-10-13] MEDS ORDERED: VALIUM10 MG PO (20:09)
[2018-10-13 21:10] LABS: BASOPHILS 0.3 % (0-2); EOSINOPHILS 3.3 % (0-7); IMMATURE GRANULOCYTES 0.2 % (0-5); LYMPHOCYTES 16.7 % (15-50); MCH 27.1 pg (26.0-34.0); MCHC 33.3 g/dL (31.0-37.0); MCV 81.4 fL (80.0-100.0); MEAN PLATELET VOLUME 10.7 fL (7.4-10.4); MONOCYTES 8.8 % (2-11); NEUTROPHILS 70.7 % (40-80); RBC 4.79 10x6/uL (4.00-5.40); RDW 15.3 % (11.5-14.5)
[2018-10-13 21:21] LABS: PLATELET COUNT 267 10x3/uL (130-400)
[2018-10-13 21:23] LABS: APPEARANCE CLEAR (CLEAR); BILIRUBIN NEGATIVE (NEGATIVE); COLOR YELLOW (YELLOW); GLUCOSE NEGATIVE (NEGATIVE); HCG URINE NEGATIVE (NEGATIVE); KETONE NEGATIVE (NEGATIVE); NITRITE NEGATIVE (NEGATIVE); PROTEIN NEGATIVE (NEGATIVE); UROBILINOGEN NORMAL (NORMAL)
[2018-10-13 21:30] LABS: ALBUMIN 3.6 g/dL (3.4-5.0); ALKALINE PHOSPHATASE 68 U/L (46-116); ALT (SGPT) 38 U/L (10-68); AMYLASE - SERUM 39 U/L (25-115); BILIRUBIN - TOTAL 0.47 mg/dL (0.2-1.3); CALC OSMOLALITY 281 mosm/kg (275-300); CALCIUM 8.6 mg/dL (8.5-10.1); CARBON DIOXIDE 22.9 mmol/L (21.0-32.0); CHLORIDE - SERUM 108 mmol/L (98-107); CREATININE - SERUM 0.8 mg/dL (0.6-1.3); GLUCOSE 95 mg/dL (74-106); LIPASE 123 U/L (73-393); POTASSIUM - SERUM 3.6 mmol/L (3.5-5.1); PROTEIN - SERUM 7.4 g/dL (6.4-8.2); SODIUM 142 mmol/L (136-145); UREA NITROGEN 9 mg/dL (7-18); eGFR NON AFRICAN AMERICAN > 90 mL/min (90-120)
[2018-10-13 21:57] VITALS: BP 125/86
== END 2018-10-13 21:57 | disposition home or self-care (01) ==
LOC: D.ER 19:59
PROVIDERS: Family Medicine
DX: K59.00 Constipation, unspecified (principal); K31.84 Gastroparesis

== ENCOUNTER 2018-10-14 19:43 | Emergency (ER) | payer OTHER ==
[~2018-10-14] VITALS: Ht 172.7 cm; Wt 136.4 kg
[~2018-10-14 19:43] MED LIST changes: +CYMBALTA60 MG PO; +DIOVAN40 MG PO; +TOPAMAX50 MG PO; +VALIUM10 MG PO
[2018-10-14 20:08] VITALS: Ht 172.7 cm; Wt 136.4 kg
[2018-10-14 20:48] LABS: BASOPHILS 0.2 % (0-2); EOSINOPHILS 2.4 % (0-7); HEMATOCRIT 38.9 % (36.0-48.0); HEMOGLOBIN 13.4 g/dL (12-16); IMMATURE GRANULOCYTES 0.2 % (0-5); LYMPHOCYTES 17.3 % (15-50); MCH 27.6 pg (26.0-34.0); MCHC 34.4 g/dL (31.0-37.0); MEAN PLATELET VOLUME 11.3 fL (7.4-10.4); MONOCYTES 7.3 % (2-11); NEUTROPHILS 72.6 % (40-80); PLATELET COUNT 280 10x3/uL (130-400); RBC 4.86 10x6/uL (4.00-5.40); RDW 15.3 % (11.5-14.5); WBC 5.8 10x3/uL (4.8-10.8)
[2018-10-14 21:20] LABS: ALBUMIN 3.9 g/dL (3.4-5.0); ALKALINE PHOSPHATASE 76 U/L (46-116); ALT (SGPT) 40 U/L (10-68); APPEARANCE CLEAR (CLEAR); BILIRUBIN NEGATIVE (NEGATIVE); BILIRUBIN - TOTAL 1.08 mg/dL (0.2-1.3); CALC OSMOLALITY 275 mosm/kg (275-300); CALCIUM 9.3 mg/dL (8.5-10.1); CHLORIDE - SERUM 105 mmol/L (98-107); COLOR YELLOW (YELLOW); CREATININE - SERUM 0.8 mg/dL (0.6-1.3); GLUCOSE 90 mg/dL (74-106); GLUCOSE NEGATIVE (NEGATIVE); KETONE NEGATIVE (NEGATIVE); NITRITE NEGATIVE (NEGATIVE); POTASSIUM - SERUM 4.1 mmol/L (3.5-5.1); PROTEIN NEGATIVE (NEGATIVE); PROTEIN - SERUM 7.9 g/dL (6.4-8.2); SODIUM 139 mmol/L (136-145); UREA NITROGEN 8 mg/dL (7-18); UROBILINOGEN NORMAL (NORMAL); eGFR NON AFRICAN AMERICAN > 90 mL/min (90-120)
[2018-10-14 21:21] LABS: HCG URINE NEGATIVE (NEGATIVE)
[2018-10-14 21:24] LABS: AMYLASE - SERUM 36 U/L (25-115); LIPASE 107 U/L (73-393)
[2018-10-14 21:25] LABS: TROPONIN-I < 0.017 ng/mL (0.000-0.060)
[2018-10-15] MEDS ORDERED: TORADOL10 MG PO (00:22)
[2018-10-15 01:03] VITALS: BP 130/82
== END 2018-10-15 01:04 | disposition home or self-care (01) ==
LOC: D.ER 19:43
PROVIDERS: Family Medicine
DX: R10.9 Unspecified abdominal pain (principal); R11.2 Nausea with vomiting, unspecified

== ENCOUNTER → 2018-10-21 11:27 | Outpatient (CLI) | payer OTHER ==
[2018-10-14 20:08] VITALS: BMI 45.7
[~2018-10-21 11:27] MED LIST changes: +TORADOL10 MG PO
== END | disposition home or self-care (01) ==
LOC: D.NM 11:27
PROVIDERS: ATTEND Internal Medicine Gastroenterology
DX: R10.32 Left lower quadrant pain (principal); R11.2 Nausea with vomiting, unspecified; R63.4 Abnormal weight loss

== ENCOUNTER 2018-10-21 13:15 | Emergency (ER) | payer OTHER ==
[2018-10-21 13:17] VITALS: BMI 45.4
[2018-10-21] MEDS ORDERED: AMBIEN10 MG PO (14:43)
[2018-10-21 15:04] VITALS: BP 124/76
== END 2018-10-21 15:05 | disposition home or self-care (01) ==
LOC: D.ER 13:15
DX: G47.00 Insomnia, unspecified (principal); T50.905A Adverse effect of unspecified drugs, medicaments and biological substances, initial encounter; Y92.019 Unspecified place in single-family (private) house as the place of occurrence of the external cause

== ENCOUNTER 2018-10-21 23:59 | Emergency (ER) | payer OTHER ==
[~2018-10-21] VITALS: Ht 172.7 cm; Wt 135.5 kg
[2018-10-22 00:05] VITALS: Ht 172.7 cm; Wt 135.5 kg
[2018-10-22 00:49] LABS: APPEARANCE HAZY (CLEAR); BILIRUBIN NEGATIVE (NEGATIVE); COLOR YELLOW (YELLOW); GLUCOSE NEGATIVE (NEGATIVE); KETONE NEGATIVE (NEGATIVE); NITRITE NEGATIVE (NEGATIVE); PROTEIN NEGATIVE (NEGATIVE); UROBILINOGEN NORMAL (NORMAL)
[2018-10-22 00:50] LABS: HCG URINE NEGATIVE (NEGATIVE)
[2018-10-22 01:00] LABS: BASOPHILS 0.2 % (0-2); EOSINOPHILS 3.6 % (0-7); HEMATOCRIT 37.7 % (36.0-48.0); HEMOGLOBIN 12.5 g/dL (12-16); IMMATURE GRANULOCYTES 0.2 % (0-5); MCH 26.8 pg (26.0-34.0); MCHC 33.2 g/dL (31.0-37.0); MCV 80.7 fL (80.0-100.0); MEAN PLATELET VOLUME 11.2 fL (7.4-10.4); MONOCYTES 7.7 % (2-11); NEUTROPHILS 66.3 % (40-80); RBC 4.67 10x6/uL (4.00-5.40); RDW 14.9 % (11.5-14.5); WBC 5.3 10x3/uL (4.8-10.8)
[2018-10-22 01:11] LABS: PLATELET COUNT 223 10x3/uL (130-400)
[2018-10-22 01:16] LABS: BACTERIA FEW /hpf (NONE SEEN); EPITHELIAL CELLS 0-5 /hpf (0-5); HYALINE CAST RARE /lpf (NONE SEEN); RED CELLS - URINE 0-5 /hpf (0-5); WHITE CELLS - URINE OCC /hpf (0-5)
[2018-10-22 01:29] LABS: ALBUMIN 3.6 g/dL (3.4-5.0); ALKALINE PHOSPHATASE 70 U/L (46-116); ALT (SGPT) 28 U/L (10-68); BILIRUBIN - TOTAL 0.52 mg/dL (0.2-1.3); CALC OSMOLALITY 278 mosm/kg (275-300); CALCIUM 8.9 mg/dL (8.5-10.1); CARBON DIOXIDE 25.1 mmol/L (21.0-32.0); CHLORIDE - SERUM 108 mmol/L (98-107); CREATININE - SERUM 0.9 mg/dL (0.6-1.3); GLUCOSE 88 mg/dL (74-106); POTASSIUM - SERUM 3.7 mmol/L (3.5-5.1); PROTEIN - SERUM 7.1 g/dL (6.4-8.2); SODIUM 141 mmol/L (136-145); UREA NITROGEN 11 mg/dL (7-18); eGFR NON AFRICAN AMERICAN 80 mL/min (90-120)
[2018-10-22 01:32] LABS: AMYLASE - SERUM 46 U/L (25-115); LIPASE 137 U/L (73-393)
[2018-10-22 01:34] LABS: TROPONIN-I < 0.017 ng/mL (0.000-0.060)
[2018-10-22 02:49] VITALS: BP 140/81
== END 2018-10-22 02:49 | disposition home or self-care (01) ==
LOC: D.ER 23:59
PROVIDERS: Family Medicine
DX: G89.29 Other chronic pain (principal); E66.01 Morbid (severe) obesity due to excess calories

== ENCOUNTER → 2018-11-18 07:30 | Outpatient (CLI) | payer OTHER ==
[2018-10-22 00:05] VITALS: BMI 45.4
[2018-11-18 08:40] LABS: AMYLASE - SERUM 57 U/L (25-115); LIPASE 275 U/L (73-393)
== END | disposition home or self-care (01) ==
LOC: D.RAD 07:30
PROVIDERS: ATTEND Internal Medicine Gastroenterology
DX: R10.9 Unspecified abdominal pain (principal); R63.4 Abnormal weight loss; R11.2 Nausea with vomiting, unspecified

== ENCOUNTER 2019-03-24 00:08 | Emergency (ER) | payer OTHER ==
[~2019-03-24] VITALS: Ht 172.7 cm; Wt 118.2 kg
[2019-03-24 00:26] VITALS: Ht 172.7 cm; Wt 118.2 kg
[2019-03-24] MEDS ORDERED: HYDROCODON-ACE1 EA10 PO (02:43)
[2019-03-24 02:58] VITALS: BP 112/67
== END 2019-03-24 02:58 | disposition home or self-care (01) ==
LOC: D.ER 00:08
DX: S82.891A Other fracture of right lower leg, initial encounter for closed fracture (principal); X50.1XXA Overexertion from prolonged static or awkward postures, initial encounter; Y93.9 Activity, unspecified; I10 Essential (primary) hypertension

== ENCOUNTER 2019-03-30 20:20 | Emergency (ER) | payer OTHER ==
[~2019-03-30] VITALS: Ht 172.7 cm; Wt 125.5 kg
[~2019-03-30 20:20] MED LIST changes: +HYDROCODON-ACE1 EA10 PO
[2019-03-30 20:30] VITALS: Ht 172.7 cm; Wt 125.5 kg
[2019-03-30] MEDS ORDERED: HYDROCODON-ACE1 EA10 PO (21:52)
[2019-03-30 22:04] VITALS: BP 121/80
== END 2019-03-30 22:04 | disposition home or self-care (01) ==
LOC: D.ER 20:20
DX: S92.151A Displaced avulsion fracture (chip fracture) of right talus, initial encounter for closed fracture (principal)

== ENCOUNTER 2019-04-18 19:53 | Emergency (ER) | payer MEDICAID ==
[~2019-04-18] VITALS: Ht 172.7 cm; Wt 127.3 kg
[2019-04-18 20:07] VITALS: Ht 172.7 cm; Wt 127.3 kg
[2019-04-18] MEDS ORDERED: COZAAR50 MG PO (20:11)
[2019-04-18 21:07] VITALS: BP 145/79
== END 2019-04-18 21:08 | disposition home or self-care (01) ==
LOC: D.ER 19:53
DX: M25.571 Pain in right ankle and joints of right foot (principal)

== ENCOUNTER 2019-10-03 21:34 | Emergency (ER) | payer OTHER ==
[~2019-10-03] VITALS: Ht 172.7 cm; Wt 136.4 kg
[~2019-10-03 21:34] MED LIST changes: +COZAAR50 MG PO; +PEPCID AC20 MG PO
[2019-10-03 21:39] VITALS: Ht 172.7 cm; Wt 136.4 kg
[2019-10-03 22:23] LABS: BILIRUBIN NEGATIVE (NEGATIVE); GLUCOSE NEGATIVE (NEGATIVE); HCG URINE NEGATIVE (NEGATIVE); KETONE NEGATIVE (NEGATIVE); NITRITE NEGATIVE (NEGATIVE); SPECIFIC GRAVITY 1.015 (1.005-1.020); UROBILINOGEN NORMAL (NORMAL)
[2019-10-03 22:25] LABS: BASOPHILS 0.3 % (0-2); EOSINOPHILS 3.3 % (0-7); HEMATOCRIT 36.5 % (36.0-48.0); HEMOGLOBIN 11.6 g/dL (12-16); IMMATURE GRANULOCYTES 0.2 % (0-5); LYMPHOCYTES 21.6 % (15-50); MCH 26.7 pg (26.0-34.0); MCHC 31.8 g/dL (31.0-37.0); MCV 83.9 fL (80.0-100.0); MEAN PLATELET VOLUME 9.9 fL (7.4-10.4); MONOCYTES 8.1 % (2-11); NEUTROPHILS 66.5 % (40-80); PLATELET COUNT 260 10x3/uL (130-400); RBC 4.35 10x6/uL (4.00-5.40); RDW 15.2 % (11.5-14.5); WBC 6.3 10x3/uL (4.8-10.8)
[2019-10-03 22:32] LABS: CALC OSMOLALITY 282 mosm/kg (275-300); CALCIUM 8.5 mg/dL (8.5-10.1); CARBON DIOXIDE 26.3 mmol/L (21.0-32.0); CHLORIDE - SERUM 104 mmol/L (98-107); CREATININE - SERUM 0.9 mg/dL (0.6-1.3); GLUCOSE 127 mg/dL (74-106); POTASSIUM - SERUM 3.9 mmol/L (3.5-5.1); SODIUM 141 mmol/L (136-145); UREA NITROGEN 12 mg/dL (7-18); eGFR NON AFRICAN AMERICAN 80 mL/min (90-120)
[2019-10-03 22:36] LABS: ALBUMIN 3.1 g/dL (3.4-5.0); ALKALINE PHOSPHATASE 57 U/L (30-120); ALT (SGPT) 16 U/L (10-68); BILIRUBIN - TOTAL 0.26 mg/dL (0.2-1.3); PROTEIN - SERUM 6.9 g/dL (6.4-8.2)
[2019-10-04] MEDS ORDERED: VOLTAREN75 MG PO (00:35)
[2019-10-04 00:44] VITALS: BP 132/88
== END 2019-10-04 03:28 | disposition home or self-care (01) ==
LOC: D.ER 21:34
PROVIDERS: Family Medicine
DX: R10.32 Left lower quadrant pain (principal); N83.202 Unspecified ovarian cyst, left side; I10 Essential (primary) hypertension

== ENCOUNTER 2019-10-05 22:00 | Emergency (ER) | payer OTHER ==
[~2019-10-05] VITALS: Ht 172.7 cm; Wt 136.4 kg
[~2019-10-05 22:00] MED LIST changes: +VOLTAREN75 MG PO
[2019-10-05 22:06] VITALS: Ht 172.7 cm; Wt 136.4 kg
[2019-10-05 22:25] LABS: BASOPHILS 0.4 % (0-2); EOSINOPHILS 5.2 % (0-7); HEMATOCRIT 36.5 % (36.0-48.0); HEMOGLOBIN 11.7 g/dL (12-16); IMMATURE GRANULOCYTES 0.2 % (0-5); LYMPHOCYTES 24.7 % (15-50); MCH 26.5 pg (26.0-34.0); MCHC 32.1 g/dL (31.0-37.0); MCV 82.8 fL (80.0-100.0); MEAN PLATELET VOLUME 9.7 fL (7.4-10.4); MONOCYTES 8.7 % (2-11); NEUTROPHILS 60.8 % (40-80); PLATELET COUNT 235 10x3/uL (130-400); RBC 4.41 10x6/uL (4.00-5.40); RDW 14.9 % (11.5-14.5); WBC 5.4 10x3/uL (4.8-10.8)
[2019-10-05 22:33] LABS: ANION GAP 9.4 mmol/L (8-16); CALCIUM 8.1 mg/dL (8.5-10.1); CARBON DIOXIDE 28.7 mmol/L (21.0-32.0); POTASSIUM - SERUM 4.1 mmol/L (3.5-5.1)
[2019-10-05 22:39] LABS: ALBUMIN 2.9 g/dL (3.4-5.0); BILIRUBIN - TOTAL 0.21 mg/dL (0.2-1.3); C-REACTIVE PROTEIN 0.5 mg/dL (0.0-0.9); PROTEIN - SERUM 6.7 g/dL (6.4-8.2)
[2019-10-05 23:02] LABS: HCG URINE NEGATIVE (NEGATIVE)
[2019-10-05 23:05] LABS: BILIRUBIN NEGATIVE (NEGATIVE); EPITHELIAL CELLS 0-5 /hpf (0-5); GLUCOSE NEGATIVE (NEGATIVE); KETONE NEGATIVE (NEGATIVE); NITRITE NEGATIVE (NEGATIVE); RED CELLS - URINE 0-5 /hpf (0-5); SPECIFIC GRAVITY 1.015 (1.005-1.020); UDS - AMPHET NEGATIVE QUAL (NEGATIVE); UDS - BARB NEGATIVE QUAL (NEGATIVE); UDS - BENZO NEGATIVE QUAL (NEGATIVE); UDS - COCAINE NEGATIVE QUAL (NEGATIVE); UDS - OPIATE NEGATIVE QUAL (NEGATIVE); UDS - PCP NEGATIVE QUAL (NEGATIVE); UDS - THC NEGATIVE QUAL (NEGATIVE); UROBILINOGEN NORMAL (NORMAL); WHITE CELLS - URINE RARE /hpf (NEGATIVE)
[2019-10-06 00:26] VITALS: BP 132/89
== END 2019-10-06 00:26 | disposition home or self-care (01) ==
LOC: D.ER 22:00
PROVIDERS: Family Medicine
DX: N83.202 Unspecified ovarian cyst, left side (principal); E28.2 Polycystic ovarian syndrome; I10 Essential (primary) hypertension

== ENCOUNTER 2019-11-12 22:15 | Emergency (ER) | payer OTHER ==
[~2019-11-12] VITALS: Ht 172.7 cm; Wt 147.7 kg
[2019-11-12 22:22] VITALS: BP 119/79; Ht 172.7 cm; Wt 147.7 kg
--- NOTE | 2019-11-12 22:45 | NUR ---
DR. CRONIN NOTIFIED AND REVIEWED PT'S BEHAVIOR AND ASSESSMENT RESULTS. PT IS A LOW RISK PER DR. CRONIN. DR. CRONIN STATED TO GIVE RESOURCES TO PT AT TIME OF DISCHARGE. NO FURHTER ORDERS AT THIS TIME. RESOURCES REVIEWED WITH PT AND SHE VERBALIZED UNDERSTANDING.
[2019-11-12] MEDS ORDERED: TORADOL10 MG PO (22:52)
== END 2019-11-12 23:09 | disposition home or self-care (01) ==
LOC: D.ER 22:15
DX: S93.402A Sprain of unspecified ligament of left ankle, initial encounter (principal); W01.0XXA Fall on same level from slipping, tripping and stumbling without subsequent striking against object, initial encounter; Y93.9 Activity, unspecified; Y92.9 Unspecified place or not applicable

== ENCOUNTER 2020-02-18 08:18 | Emergency (ER) | payer OTHER ==
[~2020-02-18] VITALS: Ht 172.7 cm; Wt 150.0 kg
[2020-02-18 08:35] VITALS: Ht 172.7 cm; Wt 150.0 kg
[2020-02-18 09:10] LABS: BASOPHILS 0.6 % (0-2); EOSINOPHILS 7.1 % (0-7); HEMATOCRIT 37.7 % (36.0-48.0); HEMOGLOBIN 12.3 g/dL (12-16); IMMATURE GRANULOCYTES 1.7 % (0-5); LYMPHOCYTES 11.7 % (15-50); MCH 26.3 pg (26.0-34.0); MCHC 32.6 g/dL (31.0-37.0); MCV 80.7 fL (80.0-100.0); MEAN PLATELET VOLUME 10.4 fL (7.4-10.4); MONOCYTES 8.9 % (2-11); PLATELET COUNT 253 10x3/uL (130-400); RBC 4.67 10x6/uL (4.00-5.40); RDW 15.4 % (11.5-14.5); WBC 4.6 10x3/uL (4.8-10.8)
[2020-02-18 09:14] LABS: BILIRUBIN NEGATIVE (NEGATIVE); KETONE NEGATIVE (NEGATIVE); NITRITE NEGATIVE (NEGATIVE); UROBILINOGEN NORMAL (NORMAL)
[2020-02-18 09:15] LABS: HCG URINE NEGATIVE (NEGATIVE)
[2020-02-18 09:30] LABS: ANION GAP 13.2 mmol/L (8-16); CARBON DIOXIDE 24.9 mmol/L (21.0-32.0); POTASSIUM - SERUM 4.1 mmol/L (3.5-5.1)
[2020-02-18 09:36] LABS: ALBUMIN 3.5 g/dL (3.4-5.0); BILIRUBIN - TOTAL 0.21 mg/dL (0.2-1.3); PROTEIN - SERUM 7.2 g/dL (6.4-8.2)
[2020-02-18] MEDS ORDERED: MAGNESIUM OXID500 MG PO (09:37)
[2020-02-18] MEDS ORDERED: ZOFRAN ODT4 MG/UDTAB PO (12:41)
[2020-02-18 12:50] VITALS: BP 146/84
== END 2020-02-18 12:57 | disposition home or self-care (01) ==
LOC: D.ER 08:18
DX: K31.84 Gastroparesis (principal); N83.201 Unspecified ovarian cyst, right side; R11.10 Vomiting, unspecified; R10.9 Unspecified abdominal pain

== ENCOUNTER 2020-02-22 07:02 | Observation (INO) | payer OTHER ==
[~2020-02-22] VITALS: Ht 172.7 cm; Wt 149.7 kg
[~2020-02-22 07:02] MED LIST changes: +MAGNESIUM OXID500 MG PO
[2020-02-22] MEDS ORDERED: TRAZODONE HCL150 MG PO (07:11)
[2020-02-22 07:52] LABS: CALC OSMOLALITY 280 mosm/kg (275-300); CALCIUM 8.7 mg/dL (8.5-10.1); CARBON DIOXIDE 23.8 mmol/L (21.0-32.0); CHLORIDE - SERUM 105 mmol/L (98-107); CREATININE - SERUM 0.8 mg/dL (0.6-1.3); GLUCOSE 143 mg/dL (74-106); POTASSIUM - SERUM 4.2 mmol/L (3.5-5.1); SODIUM 140 mmol/L (136-145); UREA NITROGEN 13 mg/dL (7-18); eGFR NON AFRICAN AMERICAN > 90 mL/min (90-120)
[2020-02-22 07:55] LABS: BILIRUBIN NEGATIVE (NEGATIVE); KETONE NEGATIVE (NEGATIVE); NITRITE NEGATIVE (NEGATIVE); UROBILINOGEN NORMAL (NORMAL)
[2020-02-22 07:57] LABS: ALBUMIN 3.4 g/dL (3.4-5.0); ALKALINE PHOSPHATASE 60 U/L (30-120); ALT (SGPT) 29 U/L (10-68); AMYLASE - SERUM 90 U/L (25-115); BILIRUBIN - TOTAL 0.24 mg/dL (0.2-1.3); LIPASE 511 U/L (73-393); PROTEIN - SERUM 7.2 g/dL (6.4-8.2)
[2020-02-22 08:00] VITALS: BP 141/70
[2020-02-22 08:06] LABS: TROPONIN-I < 0.017 ng/mL (0.000-0.060)
--- NOTE | 2020-02-22 08:07 | NUR ---
IV TO LEFT UPPER FOREARM INFILTRATED--DC'D WITH CANULA INTACT.
[2020-02-22 08:10] LABS: BASOPHILS 0.2 % (0-2); EOSINOPHILS 3.8 % (0-7); HEMATOCRIT 38.5 % (36.0-48.0); HEMOGLOBIN 12.5 g/dL (12-16); IMMATURE GRANULOCYTES 0.2 % (0-5); LYMPHOCYTES 18.1 % (15-50); MCH 26.8 pg (26.0-34.0); MCHC 32.5 g/dL (31.0-37.0); MCV 82.6 fL (80.0-100.0); MONOCYTES 8.8 % (2-11); NEUTROPHILS 68.9 % (40-80); RBC 4.66 10x6/uL (4.00-5.40); RDW 15.6 % (11.5-14.5); WBC 4.4 10x3/uL (4.8-10.8)
[2020-02-22 08:11] LABS: PLATELET COUNT 63 10x3/uL (130-400)
[2020-02-22 08:17] LABS: HCG URINE NEGATIVE (NEGATIVE)
[2020-02-22 08:25] LABS: PLATELET ESTIMATE DECREASED
[2020-02-22 10:45] VITALS: BP 135/70
[2020-02-22 14:09] VITALS: BP 129/67
--- NOTE | 2020-02-22 14:41 | NUR ---
IV TO RIGHT WRIST INFILTRATED--DC'D WITH CANULA INTACT.
--- NOTE | 2020-02-22 15:15 | NUR ---
TO ROOM 2225 FROM ER VIA WHEELCHAIR.ASSESSMENT PER FLOW SHEET.PATIENT IS WITHOUT DISTRESS.CALL LIGHT IN REACH.
[2020-02-22] MEDS ORDERED: OMEPRAZOLE40 MG PO (15:38)
[2020-02-22 15:48] LABS: APTT 22.8 SECONDS (22.8-39.4); PROTIME 13.1 SECONDS (11.6-15.0)
[2020-02-22 15:49] LABS: D-DIMER-QUANTITATIVE 0.38 ug/mLFEU (0.20-0.54)
[2020-02-22 15:58] VITALS: BP 152/92; BMI 50.2
[2020-02-22 20:00] VITALS: BP 140/76
[2020-02-23] VITALS: BP 133/71
[2020-02-23 04:00] VITALS: BP 139/86
[2020-02-23 06:24] LABS: BASOPHILS 0.5 % (0-2); EOSINOPHILS 4.1 % (0-7); HEMATOCRIT 33.9 % (36.0-48.0); HEMOGLOBIN 10.7 g/dL (12-16); LYMPHOCYTES 23.3 % (15-50); MCH 25.8 pg (26.0-34.0); MCHC 31.6 g/dL (31.0-37.0); MCV 81.7 fL (80.0-100.0); MEAN PLATELET VOLUME 10.5 fL (7.4-10.4); MONOCYTES 6.4 % (2-11); NEUTROPHILS 65.7 % (40-80); RBC 4.15 10x6/uL (4.00-5.40); RDW 15.7 % (11.5-14.5); WBC 4.4 10x3/uL (4.8-10.8)
[2020-02-23 06:28] LABS: PLATELET COUNT 221 10x3/uL (130-400)
[2020-02-23 06:51] LABS: ALBUMIN 3.1 g/dL (3.4-5.0); ANION GAP 12.4 mmol/L (8-16); BILIRUBIN - TOTAL 0.41 mg/dL (0.2-1.3); CARBON DIOXIDE 23.4 mmol/L (21.0-32.0); POTASSIUM - SERUM 3.8 mmol/L (3.5-5.1); PROTEIN - SERUM 6.4 g/dL (6.4-8.2)
[2020-02-23 09:27] VITALS: BP 128/78
[2020-02-23 10:00] VITALS: Ht 172.7 cm; Wt 149.7 kg
[2020-02-23 13:45] VITALS: BP 152/83
[2020-02-23 17:48] VITALS: BP 147/71
--- NOTE | 2020-02-23 18:36 | NUR ---
PATIENT IN BED WITH IV INTACT. STATED PAIN FROM EARLIER IS GONE AFTER PAIN MEDS. NO COMPLAINTS. TOLERATED PO WITH NO PROBLEMS. CALL LIGHT WITHIN REACH. FAMILY AT BEDSIDE.
--- NOTE | 2020-02-23 20:00 | NUR ---
PT SITTING UP IN BED WITHOUT DISTRESS, AOX4. DISCONNECTED FROM IV SO PT COULD TAKE SHOWER. CONNECT TO NS @ 125 AND ZOFRAN @ 4.7 ONCE OUT. STATES NO NAUSEA AT THIS TIME, TOLERATING REGULAR DIET. DENIES PAIN OR NEEDS AT THIS TIME. CL IN REACH, WILL CTM
[2020-02-23 20:28] VITALS: BP 154/90
[2020-02-24 00:24] VITALS: BP 139/62
[2020-02-24 04:51] VITALS: BP 123/47
--- NOTE | 2020-02-24 07:35 | NUR ---
ALERT AND ORIENTED. LUNGS CLEAR BILATERALLY. HEART SOUNDS S1 AND S2 HEARD IN ALL BOLTON. BOWEL SOUNDS ACTIVE X 4. ABD TENDER. IV TO LEFT HAND PATENT WITHOUT REDNESS. DENIES NEEDS. BED LOW. CALL AL AND PERSONAL ITEMS IN REACH. WILL CONTINUE TO MONITOR.
[2020-02-24 08:41] VITALS: BP 131/80
--- NOTE | 2020-02-24 11:52 | NUR ---
RESTING IN BED. DENIES NEEDS. WILL CONTINUE TO MONITOR.
[2020-02-24 13:12] VITALS: BP 145/82
[2020-02-24 14:12] LABS: BASOPHILS 0.2 % (0-2); HEMATOCRIT 31.2 % (36.0-48.0); HEMOGLOBIN 10.2 g/dL (12-16); LYMPHOCYTES 16.8 % (15-50); MCH 26.4 pg (26.0-34.0); MCHC 32.7 g/dL (31.0-37.0); MCV 80.8 fL (80.0-100.0); MEAN PLATELET VOLUME 10.2 fL (7.4-10.4); MONOCYTES 7.4 % (2-11); NEUTROPHILS 72.6 % (40-80); PLATELET COUNT 205 10x3/uL (130-400); RBC 3.86 10x6/uL (4.00-5.40); RDW 15.2 % (11.5-14.5); WBC 4.1 10x3/uL (4.8-10.8)
[2020-02-24 14:21] LABS: ANION GAP 12.7 mmol/L (8-16); CALCIUM 7.2 mg/dL (8.5-10.1); CARBON DIOXIDE 20.9 mmol/L (21.0-32.0); MAGNESIUM - SERUM 1.7 mg/dL (1.8-2.4); POTASSIUM - SERUM 3.6 mmol/L (3.5-5.1)
[2020-02-24 16:24] VITALS: BP 139/79
--- NOTE | 2020-02-24 18:10 | NUR ---
PATIENT STATES NAUSEAS AFTER PRN ZOFRAN. JOSE VIGIL NOTIFIED AND ZOFRAN DRIP RESTARTED PER ORDER.
[2020-02-24 20:00] VITALS: BP 135/80
--- NOTE | 2020-02-24 20:00 | NUR ---
PT SITTING UP IN BED WITHOUT DISTRESS, AO4. IV LEFT HAND INFUSING NS @ 125, ZOFRAN DRIP. STATES SHE WAS TOLERATING REGULAR DIET TODAY UNTIL DINNER THEN BECAME NAUSEOUS. DENIES NEEDS AT THIS TIME. CL IN REACH, WILL CTM
[2020-02-25 04:00] VITALS: BP 133/82
[2020-02-25 07:06] LABS: BASOPHILS 0.2 % (0-2); EOSINOPHILS 3.3 % (0-7); HEMATOCRIT 34.3 % (36.0-48.0); HEMOGLOBIN 11.3 g/dL (12-16); IMMATURE GRANULOCYTES 0.2 % (0-5); LYMPHOCYTES 19.1 % (15-50); MCH 26.9 pg (26.0-34.0); MCHC 32.9 g/dL (31.0-37.0); MCV 81.7 fL (80.0-100.0); MEAN PLATELET VOLUME 10.4 fL (7.4-10.4); NEUTROPHILS 69.2 % (40-80); PLATELET COUNT 218 10x3/uL (130-400); RDW 15.2 % (11.5-14.5); WBC 4.6 10x3/uL (4.8-10.8)
[2020-02-25 07:31] LABS: ALBUMIN 3.1 g/dL (3.4-5.0); ANION GAP 12.4 mmol/L (8-16); BILIRUBIN - TOTAL 0.14 mg/dL (0.2-1.3); CALCIUM 8.4 mg/dL (8.5-10.1); CARBON DIOXIDE 23.6 mmol/L (21.0-32.0); PROTEIN - SERUM 6.6 g/dL (6.4-8.2)
--- NOTE | 2020-02-25 08:30 | NUR ---
PT SITTING UP IN BED, RESP EVEN AND UNLABORED. PT DENIES PAIN AT THIS TIME. DOES VOICE "LITTLE" NAUSEA, BUT VOICES ZOFRAN DRIP DOES AID IN DECREASING NAUSEA. IV TO LEFT HAND WITH NS @ 125ML/HR, ZOFRAN 4.7ML/HR BOTH INFUSING VIA PUMP. SITE WITHOUT REDNESS OR EDEMA. DENIES FURTHER NEEDS AT THIS TIME. CL WITHIN REACH. ENCOURAGED TO CALL WITH NEEDS. CONTINUE POC
[2020-02-25 09:18] VITALS: BP 139/88
[2020-02-25 12:27] VITALS: BP 150/73
[2020-02-25 18:01] VITALS: BP 164/99
--- NOTE | 2020-02-25 19:30 | NUR ---
PT SITTING UP IN BED WITHOUT DISTRESS, AOX4. IV RIGHT FA INFUSING NS @ 125. DENIES PAIN OR NAUSEA. STATES SHE IS TOLERATING REGULAR DIET. DENIES NEEDS. CL IN REACH, WILL CTM
[2020-02-25 20:00] VITALS: BP 139/73
[2020-02-26 04:00] VITALS: BP 104/63
[2020-02-26 06:58] LABS: BASOPHILS 0.2 % (0-2); EOSINOPHILS 4.5 % (0-7); HEMATOCRIT 34.3 % (36.0-48.0); HEMOGLOBIN 11.1 g/dL (12-16); IMMATURE GRANULOCYTES 0.2 % (0-5); LYMPHOCYTES 21.3 % (15-50); MCH 26.4 pg (26.0-34.0); MCHC 32.4 g/dL (31.0-37.0); MCV 81.7 fL (80.0-100.0); MEAN PLATELET VOLUME 10.5 fL (7.4-10.4); MONOCYTES 8.8 % (2-11); PLATELET COUNT 225 10x3/uL (130-400); RDW 15.4 % (11.5-14.5); WBC 4.5 10x3/uL (4.8-10.8)
--- NOTE | 2020-02-26 07:15 | NUR ---
RECEIVED BEDSIDE REPORT. PT SITTING UP IN BED, A&O X4. DENIES PAIN. PIV IN RIGHT FOREARM, PATENT AND INFUSING, NO REDNESS OR SWELLING. ABD SLIGHTLY DISTENDED. DENIES N/V SINCE YESTERDAY. PT ABLE TO AMBULATE WITH NO ASSIST. EDUCATED ON CL AND NEEDS, VERBALIZED UNDERSTANDING. BED LOW, RAILS X2. CL IN REACH. WILL CONTINUE TO MONITOR.
[2020-02-26 07:47] LABS: ALKALINE PHOSPHATASE 51 U/L (30-120); ALT (SGPT) 26 U/L (10-68); BILIRUBIN - TOTAL 0.19 mg/dL (0.2-1.3); CALC OSMOLALITY 283 mosm/kg (275-300); CALCIUM 8.2 mg/dL (8.5-10.1); CARBON DIOXIDE 23.9 mmol/L (21.0-32.0); CHLORIDE - SERUM 107 mmol/L (98-107); CREATININE - SERUM 0.9 mg/dL (0.6-1.3); GLUCOSE 112 mg/dL (74-106); MAGNESIUM - SERUM 1.8 mg/dL (1.8-2.4); POTASSIUM - SERUM 4.1 mmol/L (3.5-5.1); PROTEIN - SERUM 5.8 g/dL (6.4-8.2); SODIUM 143 mmol/L (136-145); UREA NITROGEN 8 mg/dL (7-18); eGFR NON AFRICAN AMERICAN 80 mL/min (90-120)
[2020-02-26 09:48] VITALS: BP 127/86
--- NOTE | 2020-02-26 10:45 | NUR ---
PT C/O NEEDING SHOWER, D/C AND DELAYED IV, COVERED. PROVIDED BATHING NEEDS, GOWN, CHANGED LININS. WILL CONTINUE TO MONITOR.
[2020-02-26 12:00] VITALS: BP 123/86
--- NOTE | 2020-02-26 16:02 | NUR ---
EDUCATED PT ON DISCHARGE INSTRUSTIONS, MEDICATIONS, FOLLOW UP APT, PT VERBALIZED UNDERSTANDING AND SIGNED PAPERWORK. ESCORTED PT TO FRONT ENTRANCE VIA WHEELCHAIR.
== END 2020-02-26 16:06 | disposition home or self-care (01) ==
LOC: D.ER 07:02 → OBSVTIME 14:20 → D.MS 14:20
PROVIDERS: Family Medicine; ADMIT Emergency Medicine; ATTEND Emergency Medicine
DX: K31.84 Gastroparesis (principal); K85.90 Acute pancreatitis without necrosis or infection, unspecified; D72.819 Decreased white blood cell count, unspecified; I10 Essential (primary) hypertension; E28.2 Polycystic ovarian syndrome; F41.8 Other specified anxiety disorders; R79.89 Other specified abnormal findings of blood chemistry

== ENCOUNTER 2020-03-01 10:00 | Emergency (ER) | payer OTHER ==
[~2020-03-01] VITALS: Ht 172.7 cm; Wt 150.0 kg
[~2020-03-01 10:00] MED LIST changes: +OMEPRAZOLE40 MG PO; +TRAZODONE HCL150 MG PO
[2020-03-01 10:11] VITALS: Ht 172.7 cm; Wt 150.0 kg
[2020-03-01 10:45] LABS: ANION GAP 13.8 mmol/L (8-16); CALCIUM 9.3 mg/dL (8.5-10.1); POTASSIUM - SERUM 3.8 mmol/L (3.5-5.1)
[2020-03-01 10:51] LABS: ALBUMIN 4.1 g/dL (3.4-5.0); BILIRUBIN - TOTAL 0.43 mg/dL (0.2-1.3); PROTEIN - SERUM 8.2 g/dL (6.4-8.2)
[2020-03-01 10:52] LABS: BASOPHILS 0.6 % (0-2); EOSINOPHILS 2.4 % (0-7); HEMATOCRIT 43.7 % (36.0-48.0); HEMOGLOBIN 14.5 g/dL (12-16); LYMPHOCYTES 15.9 % (15-50); MCH 26.7 pg (26.0-34.0); MCHC 33.2 g/dL (31.0-37.0); MCV 80.3 fL (80.0-100.0); MEAN PLATELET VOLUME 10.3 fL (7.4-10.4); MONOCYTES 7.3 % (2-11); NEUTROPHILS 73.8 % (40-80); PLATELET COUNT 362 10x3/uL (130-400); RBC 5.44 10x6/uL (4.00-5.40); RDW 15.5 % (11.5-14.5)
[2020-03-01 11:01] LABS: BILIRUBIN NEGATIVE (NEGATIVE); KETONE NEGATIVE (NEGATIVE); NITRITE NEGATIVE (NEGATIVE); UROBILINOGEN NORMAL mg/dL (< 2)
[2020-03-01 11:06] LABS: BACTERIA MANY /HPF (NONE SEEN); WHITE CELLS - URINE OCC HPF (0-4)
[2020-03-01 12:40] VITALS: BP 149/98
[2020-03-01] MEDS ORDERED: DULCOLAX STOOL100 MG PO (13:03)
== END 2020-03-01 13:54 | disposition home or self-care (01) ==
LOC: D.ER 10:00
PROVIDERS: Family Medicine
DX: K59.00 Constipation, unspecified (principal); K31.84 Gastroparesis; E66.01 Morbid (severe) obesity due to excess calories; I10 Essential (primary) hypertension

== ENCOUNTER 2020-08-22 01:23 | Inpatient (IN) | payer OTHER ==
[~2020-08-22] VITALS: Ht 174 cm; Wt 147.8 kg
--- NOTE | ~2020-08-22 | EEG ---
PATIENT:FEMI CARTER MEDICAL RECORD: [id number] DATE OF : [birth year] LOCATION:D.223 D.MS ADMISSION DATE: 08/22/20 REFERRING PHYSICIAN: INTERPRETING PHYSICIAN: EDGARDO WASHINGTON MD DATE OF SERVICE: 08/23/2020 DATE OF EEG 08/23/2020 ORDERED BY: Dr. Washington. ROOM NUMBER: 2236. CASE HISTORY: A 30-year-old female with reported spells of change in awareness, responsiveness, and convulsiveness with prior history of staring spells and family history of seizure in sister. MEDICATIONS: Keppra. PROCEDURE: EEG done as a routine bedside portable recording using the standard 10-12 international electrode system. A 16 channel was used with 17 as EKG. Photic stimulation done as activation procedures. DESCRIPTION: EEG opens with the patient awake with a record displaying low amplitude background at 15 Hz. Occasional bilateral independent single theta slow waves and sharp waves were seen. No epileptiform change such as spike, polyspike, or spike and wave was seen. Photic stimulation yielded only minor driving response at low amplitudes, at 18 Hz the right hand was noted to be shaking without epileptiform changes. Otherwise, no further epileptiform change was appreciated with hyperventilation. IMPRESSION: Mildly abnormal EEG with nonspecific abnormalities. No distinct finding that might suggest underlying seizure disorder was observed. TRANSINT:[id number] Voice Confirmation ID: [id number] DOCUMENT ID: [id number] EDGARDO WASHINGTON MD CC: [id number] DICTATION DATE: 08/23/20 1637 OPTICS MANUFACTURING TECHNICIAN: 08/24/20 0815 DIS IN 08/23/20 [id number] [place] [address]
[~2020-08-22 01:23] MED LIST changes: +BUSPAR 15 MG TA15 MG PO; +DULCOLAX STOOL100 MG PO; +ZOFRAN4 MG PO
[2020-08-22 01:30] VITALS: BP 161/105
[2020-08-22] MEDS ORDERED: TIROSINT25 MCG PO (01:36)
[2020-08-22 02:30] VITALS: BP 135/87
[2020-08-22 02:48] LABS: BILIRUBIN NEGATIVE (NEGATIVE); KETONE NEGATIVE (NEGATIVE); NITRITE NEGATIVE (NEGATIVE); UROBILINOGEN NORMAL mg/dL (< 2)
[2020-08-22 02:49] LABS: BASOPHILS 0.1 % (0-2); EOSINOPHILS 2.8 % (0-7); HEMATOCRIT 38.8 % (36.0-48.0); HEMOGLOBIN 12.9 g/dL (12-16); IMMATURE GRANULOCYTES 0.1 % (0-5); LYMPHOCYTE ABS# 1.11 10x3/uL (1.18-3.74); LYMPHOCYTES 15.7 % (15-50); MCHC 33.2 g/dL (31.0-37.0); MCV 81.2 fL (80.0-100.0); MEAN PLATELET VOLUME 10.4 fL (7.4-10.4); MONOCYTES 8.3 % (2-11); NEUTROPHIL ABS# 5.15 10x3/uL (1.56-6.13); PLATELET COUNT 250 10x3/uL (130-400); RBC 4.78 10x6/uL (4.00-5.40); WBC 7.1 10x3/uL (4.8-10.8)
[2020-08-22 02:50] LABS: HCG SERUM NEGATIVE (NEGATIVE)
[2020-08-22 02:55] LABS: ANION GAP 9.9 mmol/L (8-16); APTT 24.4 SECONDS (22.8-39.4); CALCIUM 8.8 mg/dL (8.5-10.1); INR 1.11 (0.85-1.17); POTASSIUM - SERUM 3.9 mmol/L (3.5-5.1); PROTIME 13.2 SECONDS (11.6-15.0)
[2020-08-22 03:00] LABS: UDS - AMPHET NEGATIVE QUAL (NEGATIVE); UDS - BARB NEGATIVE QUAL (NEGATIVE); UDS - BENZO NEGATIVE QUAL (NEGATIVE); UDS - COCAINE NEGATIVE QUAL (NEGATIVE); UDS - OPIATE POSITIVE QUAL (NEGATIVE); UDS - PCP NEGATIVE QUAL (NEGATIVE); UDS - THC NEGATIVE QUAL (NEGATIVE)
[2020-08-22 03:01] LABS: ALBUMIN 3.3 g/dL (3.4-5.0); BILIRUBIN - TOTAL 0.3 mg/dL (0.2-1.3); MAGNESIUM - SERUM 1.9 mg/dL (1.8-2.4); PROTEIN - SERUM 7.2 g/dL (6.4-8.2)
[2020-08-22 08:12] VITALS: Ht 174 cm; Wt 147.8 kg
[2020-08-22 15:22] VITALS: BP 129/70
[2020-08-22 18:00] VITALS: BP 149/84
[2020-08-22 20:00] VITALS: BP 128/83
--- NOTE | 2020-08-23 03:04 | NUR ---
HAS RESTED WELL THIS SHIFT. NO COMPLAINTS OF PAIN OR DISCOMFORT VOICED. NO SEIZURE ACTIVITY NOTED. ENCOURAGED TO CALL FOR ASSISTANCE WITH NEEDS NEEDED. CALL LIGHT IN EASY REACH. SAFETY ROUNDS MADE.
[2020-08-23 04:00] VITALS: BP 133/64
--- NOTE | 2020-08-23 07:20 | NUR ---
REC'D IN BED WITH EYES CLOSED EASILY TO AROUSED WHEN NAME IS CALLED. RESP EVEN AND UNLABORED WITH NO DISTRESS NOTED. CAN EXPRESS NEEDS AND WANTS. NO C/O NOTED OR VOICED. ASSESSMENT COMPLETED. C/L IN REACH AT BEDSIDE.
--- NOTE | 2020-08-23 07:37 | NUR ---
WIRES FOR EEG BEING PLACED. PATIENT IS WITHOUT DISTRESS.
[2020-08-23 09:22] LABS: BASOPHILS 0.3 % (0-2); EOSINOPHILS 3.3 % (0-7); HEMATOCRIT 37.6 % (36.0-48.0); HEMOGLOBIN 12.2 g/dL (12-16); IMMATURE GRANULOCYTES 0.2 % (0-5); LYMPHOCYTE ABS# 0.85 10x3/uL (1.18-3.74); LYMPHOCYTES 13.3 % (15-50); MCH 26.1 pg (26.0-34.0); MCHC 32.4 g/dL (31.0-37.0); MCV 80.3 fL (80.0-100.0); MEAN PLATELET VOLUME 10.5 fL (7.4-10.4); MONOCYTES 9.5 % (2-11); NEUTROPHIL ABS# 4.69 10x3/uL (1.56-6.13); NEUTROPHILS 73.4 % (40-80); PLATELET COUNT 249 10x3/uL (130-400); RBC 4.68 10x6/uL (4.00-5.40); RDW 15.1 % (11.5-14.5); WBC 6.4 10x3/uL (4.8-10.8)
[2020-08-23 09:36] LABS: ALBUMIN 3.4 g/dL (3.4-5.0); ALKALINE PHOSPHATASE 71 U/L (30-120); ALT (SGPT) 55 U/L (10-68); CALC OSMOLALITY 276 mosm/kg (275-300); CALCIUM 8.8 mg/dL (8.5-10.1); CARBON DIOXIDE 24.5 mmol/L (21.0-32.0); CHLORIDE - SERUM 105 mmol/L (98-107); GLUCOSE 129 mg/dL (74-106); MAGNESIUM - SERUM 2.1 mg/dL (1.8-2.4); POTASSIUM - SERUM 4.3 mmol/L (3.5-5.1); PROTEIN - SERUM 6.6 g/dL (6.4-8.2); SODIUM 138 mmol/L (136-145); UREA NITROGEN 11 mg/dL (7-18)
[2020-08-23 09:44] LABS: CREATININE - SERUM 0.8 mg/dL (0.6-1.3); eGFR NON AFRICAN AMERICAN 90 mL/min (90-120)
[2020-08-23 12:43] VITALS: BP 143/79
[2020-08-23] MEDS ORDERED: KEPPRA1000 MG PO (14:22)
[2020-08-23 16:23] VITALS: BP 143/84
--- NOTE | 2020-08-23 17:34 | NUR ---
DC AT THIS TIME WITH ALL PERSONAL BELONGING. VOICES UNDERSTANDING OF DC INSTRUCTION. IV DC. STABLE CONDITION UPON DC.
== END 2020-08-23 17:35 | disposition home or self-care (01) | DRG 101 ==
LOC: D.ER 01:23 → D.MS 03:51 → D.EDHOLD 03:51 → D.MS 05:58
PROVIDERS: Family Medicine; ADMIT Family Medicine; ATTEND Family Medicine
DX: G40.209 Localization-related (focal) (partial) symptomatic epilepsy and epileptic syndromes with complex partial seizures, not intractable, without status epilepticus (principal); I10 Essential (primary) hypertension; E03.9 Hypothyroidism, unspecified; K31.84 Gastroparesis; E66.9 Obesity, unspecified

== ENCOUNTER 2020-09-17 11:11 | Inpatient (IN) | payer OTHER ==
[2020-09-17] VITALS (11 sets, daily range): BP systolic 106–152; BP diastolic 64–101; Ht 174 cm; Wt 152.3 kg
[~2020-09-17] VITALS: Ht 174 cm; Wt 152.3 kg
[~2020-09-17 11:11] MED LIST changes: +KEPPRA1000 MG PO; +TIROSINT25 MCG PO
--- NOTE | 2020-09-17 12:00 | NUR ---
PATIENT STRETCHER RAILS PADDED FOR SEIZURE PRECAUTIONS.
[2020-09-17 12:02] LABS: BASOPHILS 0.3 % (0-2); HEMATOCRIT 37.5 % (36.0-48.0); HEMOGLOBIN 12.3 g/dL (12-16); LYMPHOCYTE ABS# 0.87 10x3/uL (1.18-3.74); LYMPHOCYTES 13.7 % (15-50); MCH 26.9 pg (26.0-34.0); MCHC 32.8 g/dL (31.0-37.0); MCV 81.9 fL (80.0-100.0); MONOCYTES 6.9 % (2-11); NEUTROPHIL ABS# 4.85 10x3/uL (1.56-6.13); NEUTROPHILS 76.1 % (40-80); PLATELET COUNT 223 10x3/uL (130-400); RBC 4.58 10x6/uL (4.00-5.40); WBC 6.4 10x3/uL (4.8-10.8)
[2020-09-17 12:11] LABS: ANION GAP 14.1 mmol/L (8-16); CALCIUM 8.5 mg/dL (8.5-10.1); CARBON DIOXIDE 24.7 mmol/L (21.0-32.0); POTASSIUM - SERUM 3.8 mmol/L (3.5-5.1)
--- NOTE | 2020-09-17 12:16 | NUR ---
UNEMPLOYMENT CLAIMS ADJUDICATOR AT BEDSIDE.
[2020-09-17 12:17] LABS: ALBUMIN 3.5 g/dL (3.4-5.0); BILIRUBIN - TOTAL 0.31 mg/dL (0.2-1.3); MAGNESIUM - SERUM 1.8 mg/dL (1.8-2.4); PROTEIN - SERUM 6.6 g/dL (6.4-8.2)
--- NOTE | 2020-09-17 12:40 | NUR ---
PATIENT ENTERED HALLWAY AND STATES "HEY I JUST WANTED YOU TO KNOW SHE JUST HAD A SHORT SEIZURE". PATIENT EYES OPEN, ALERT, ORIENTED TO PLACE ONLY. UNABLE TO STATE NAME OR DATE. REORIENTED PATIENT. RECLINED FROM SEMI CANTOR TO SUPINE, PERRLA, NO LOSS OF BOWEL OR BLADDER. GLENIS SCHILLING MIDLEVEL NOTIFIED AND 2MG IVP NOW ATIVAN VERBAL ORDER RECIEVED.
--- NOTE | 2020-09-17 13:29 | NUR ---
REPORTS PATIENT JUST HAD ANOTHER SEIZURE, WITNESSED BY , NOT BY STAFF. NEURO EXAM WNL WITH EXCEPTION OF ORIENTATION TO PLACE ONLY. GLENIS SCHILLING MID LEVEL AT BEDSIDE PERFORMING EXAM WELL. NO INJURIES FROM SEIZURES. NO NEW ORDERS FROM TONIE. MONITORING PATIENT IN LINE OF SIGHT. SEIZURE PRECAUTIONS STILL IN PLACE.
--- NOTE | 2020-09-17 13:47 | NUR ---
AWAITING TOPAMAX MEDICATION FROM PHARMACY
--- NOTE | 2020-09-17 14:27 | NUR ---
PATIENT ASSISTED OFF OF BED LINDSEY. REQUESTING SNACK. NOTIFIED THAT DUE TO LETHARGY AND FREQUENT SEIZURES WE CANNOT ALLOW HER TO EAT AT THIS TIME.
[2020-09-17] MEDS ORDERED: TOPAMAX50 MG PO (14:39)
--- NOTE | 2020-09-17 15:04 | NUR ---
CAME TO DESK, STATES THAT PATIENT SEIZED AGAIN. PATIENT IS POST ICTAL, AROUSES TO TACTILE STIMULI. GLENIS SCHILLING MID LEVEL NOTIFIED. STATES THAT SHE WILL BE ADMITTED.
--- NOTE | 2020-09-17 15:20 | NUR ---
[facility] RECEIVED FROM PHARMACY
--- NOTE | 2020-09-17 15:38 | NUR ---
PATIENT ASSISTED TO POSITION OF COMFORT. EDUCATED ON ORDERED MEDICATIONS AND PURPOSES.
--- NOTE | 2020-09-17 16:16 | NUR ---
REPORT CALLED TO MOJGAN MIKE IN ICU.
--- NOTE | 2020-09-17 16:24 | NUR ---
ATTEMPTED TO TAKE PATIENT TO ICU. STATES THAT A PROVIDER HAS NOT EXPLAINED THE PLAN OF CARE TO THEM AND HE WOULD LIKE TO SPEAK WITH THEM FIRST BEFORE SHE GOES ANYWHERE.
--- NOTE | 2020-09-17 16:58 | NUR ---
PATIENT TAKEN TO ICU AT THIS TIME.
--- NOTE | 2020-09-17 19:00 | NUR ---
RECEIVED BEDSIDE REPORT. ROUNDING COMPLETE. PATIENT IS ALERT AND ORIENTED, RESTING COMFORTABLY IN BED. RESPIRATIONS ARE EVEN AND UNLABORED. NO S/S OF DISTRESS. NO C/O PAIN. CALL LIGHT WITHIN REACH. DENIES NEEDS AT THIS TIME. WILL CPOC.
[2020-09-17 19:36] LABS: UDS - AMPHET NEGATIVE QUAL (NEGATIVE); UDS - BARB NEGATIVE QUAL (NEGATIVE); UDS - BENZO NEGATIVE QUAL (NEGATIVE); UDS - COCAINE NEGATIVE QUAL (NEGATIVE); UDS - OPIATE NEGATIVE QUAL (NEGATIVE); UDS - PCP NEGATIVE QUAL (NEGATIVE); UDS - THC NEGATIVE QUAL (NEGATIVE)
[2020-09-17 20:14] LABS: BILIRUBIN NEGATIVE (NEGATIVE); KETONE NEGATIVE (NEGATIVE); NITRITE NEGATIVE (NEGATIVE); UROBILINOGEN NORMAL mg/dL (< 2)
[2020-09-18] VITALS (16 sets, daily range): BP systolic 102–128; BP diastolic 63–95
[2020-09-18 05:13] LABS: BASOPHILS 0.2 % (0-2); EOSINOPHILS 3.7 % (0-7); HEMATOCRIT 35.3 % (36.0-48.0); HEMOGLOBIN 11.5 g/dL (12-16); IMMATURE GRANULOCYTES 0.2 % (0-5); MCH 26.7 pg (26.0-34.0); MCHC 32.6 g/dL (31.0-37.0); MCV 81.9 fL (80.0-100.0); MEAN PLATELET VOLUME 10.9 fL (7.4-10.4); MONOCYTES 8.3 % (2-11); NEUTROPHIL ABS# 3.58 10x3/uL (1.56-6.13); NEUTROPHILS 65.6 % (40-80); PLATELET COUNT 225 10x3/uL (130-400); RBC 4.31 10x6/uL (4.00-5.40); RDW 15.3 % (11.5-14.5); WBC 5.5 10x3/uL (4.8-10.8)
[2020-09-18 05:15] LABS: ALBUMIN 3.1 g/dL (3.4-5.0); ANION GAP 13.4 mmol/L (8-16); BILIRUBIN - TOTAL 0.26 mg/dL (0.2-1.3); CALCIUM 8.4 mg/dL (8.5-10.1); CARBON DIOXIDE 23.5 mmol/L (21.0-32.0); POTASSIUM - SERUM 3.9 mmol/L (3.5-5.1); PROTEIN - SERUM 6.3 g/dL (6.4-8.2)
--- NOTE | 2020-09-18 05:45 | NUR ---
PATIENT SLEPT THROUGHOUT SHIFT. NO SEIZURE LIKE ACTIVITY OBSERVED.
--- NOTE | 2020-09-18 09:17 | NUR ---
0700 BEDSIDE SHIFT REPORT RECIEVED AND CARE ASSUMED OF THE PATIENT.. SEE FLOW SHEET FOR SHIFT ASSESMENT FINDINGS.. 0800 BREAKFAST IS SERVED FEEDING SELF.. 0830 100% BREAKFAST EATEN... 0900 MEDS GIVEN...
--- NOTE | 2020-09-18 11:35 | NUR ---
1100 IN TO SEE PATIENT AT BEDSIDE.. 1110 DR LAUREN IN TO SEE PATIENT.. UPDATE IS GIVEN..
--- NOTE | 2020-09-18 11:44 | NUR ---
LUNCH SERRVED HOB ELEVATED AND PATIENT IS FEEDING SELF
--- NOTE | 2020-09-18 13:14 | NUR ---
[address] THE BEDSIDE [address] HDZ IN TO SEE PATIENT... SPOKE WITH PATIENT ABOUT OPTIONS FOR TX...
--- NOTE | 2020-09-18 16:52 | NUR ---
1400 PATIENT AND DECIDED THAT [facility] IN [place] IS WHERE THEY WANTED TO CONTINUE FURTHUR NEURO TX EXPLAINED TO THEM BY DR HDZ... 1400 TRANSF[facility] CALLED .. 1530 [facility] [place] CALLED UNIT BED ASSIGNMENT GIVEN [address] RAMIREZ ACCEPTING PHYSICIAN,, 1545 REPORT IS CALLED TO ASHOK ERWIN RN AT [facility] 1600 CHART COPIED AND DISC RECIEVED FROM RAD OF PREVIOUS MRI AND CT SCANS TO BE SENT WITH PATIENT.. [facility] CALLED FOR TRANSPORT 1630 PIV RESITED PRIOR TO TRANSPORT INTO RIGHT AC LEFT PIV DIS LODGED AND DCd 1650 [facility] HERE FRO TRANSPORT.. PT GONE FROM UNIT..
== END 2020-09-18 17:00 | disposition short-term general hospital (02) | DRG 101 ==
LOC: D.ER 11:11 → D.ICU 16:00
PROVIDERS: Emergency Medicine; ADMIT Emergency Medicine; ATTEND Emergency Medicine
DX: G40.209 Localization-related (focal) (partial) symptomatic epilepsy and epileptic syndromes with complex partial seizures, not intractable, without status epilepticus (principal); E11.9 Type 2 diabetes mellitus without complications; I10 Essential (primary) hypertension; E03.9 Hypothyroidism, unspecified; K31.84 Gastroparesis; E66.01 Morbid (severe) obesity due to excess calories

== ENCOUNTER 2020-10-05 20:12 | Emergency (ER) | payer OTHER ==
[~2020-10-05] VITALS: Ht 174 cm; Wt 150.0 kg
[2020-10-05 20:15] VITALS: Ht 174 cm; Wt 150.0 kg
[2020-10-05 20:49] LABS: UDS - AMPHET NEGATIVE QUAL (NEGATIVE); UDS - BARB NEGATIVE QUAL (NEGATIVE); UDS - BENZO NEGATIVE QUAL (NEGATIVE); UDS - COCAINE NEGATIVE QUAL (NEGATIVE); UDS - OPIATE NEGATIVE QUAL (NEGATIVE); UDS - PCP NEGATIVE QUAL (NEGATIVE); UDS - THC NEGATIVE QUAL (NEGATIVE)
[2020-10-05 21:05] LABS: BILIRUBIN NEGATIVE (NEGATIVE); KETONE NEGATIVE (NEGATIVE); NITRITE NEGATIVE (NEGATIVE); UROBILINOGEN NORMAL mg/dL (< 2)
[2020-10-05 21:06] LABS: BASOPHILS 0.4 % (0-2); EOSINOPHILS 2.9 % (0-7); HEMATOCRIT 35.3 % (36.0-48.0); HEMOGLOBIN 11.9 g/dL (12-16); IMMATURE GRANULOCYTES 0.2 % (0-5); LYMPHOCYTE ABS# 0.97 10x3/uL (1.18-3.74); LYMPHOCYTES 18.6 % (15-50); MCH 27.2 pg (26.0-34.0); MCHC 33.7 g/dL (31.0-37.0); MCV 80.6 fL (80.0-100.0); MEAN PLATELET VOLUME 10.7 fL (7.4-10.4); MONOCYTES 7.9 % (2-11); NEUTROPHIL ABS# 3.65 10x3/uL (1.56-6.13); PLATELET COUNT 189 10x3/uL (130-400); RBC 4.38 10x6/uL (4.00-5.40); RDW 15.4 % (11.5-14.5); WBC 5.2 10x3/uL (4.8-10.8)
[2020-10-05 21:06] LABS: SQUAMOUS EPITHELIAL 0-5 HPF (0-4); WHITE CELLS - URINE 0-5 HPF (0-4)
[2020-10-05 21:07] LABS: BACTERIA MODERATE HPF (NONE SEEN); HCG URINE NEGATIVE (NEGATIVE)
[2020-10-05 21:21] LABS: ANION GAP 14.3 mmol/L (8-16); CALCIUM 8.5 mg/dL (8.5-10.1); CARBON DIOXIDE 23.1 mmol/L (21.0-32.0); POTASSIUM - SERUM 3.4 mmol/L (3.5-5.1)
[2020-10-05 21:36] LABS: ALBUMIN 3.4 g/dL (3.4-5.0); BILIRUBIN - TOTAL 0.31 mg/dL (0.2-1.3); PROTEIN - SERUM 6.6 g/dL (6.4-8.2); THYROID STIMULATING HORMONE 2.78 uIU/mL (0.36-3.74)
[2020-10-05] MEDS ORDERED: CEPHALEXIN500 M1 PO (21:48)
[2020-10-05 22:52] VITALS: BP 118/70
== END 2020-10-05 22:53 | disposition home or self-care (01) ==
LOC: D.ER 20:12
PROVIDERS: Family Medicine
DX: G40.89 Other seizures (principal); N39.0 Urinary tract infection, site not specified; E87.6 Hypokalemia; E11.9 Type 2 diabetes mellitus without complications; I10 Essential (primary) hypertension

== ENCOUNTER 2020-12-12 12:42 | Emergency (ER) | payer SELFPAY ==
[~2020-12-12] VITALS: Ht 174 cm; Wt 150.0 kg
[~2020-12-12 12:42] MED LIST changes: +CEPHALEXIN500 M1 PO
[2020-12-12 12:46] VITALS: Ht 174 cm; Wt 150.0 kg
[2020-12-12 13:31] LABS: EOSINOPHILS 4.9 % (0-7); HEMATOCRIT 38.4 % (36.0-48.0); HEMOGLOBIN 12.8 g/dL (12-16); LYMPHOCYTES 17.9 % (15-50); MCHC 33.3 g/dL (31.0-37.0); MCV 81.3 fL (80.0-100.0); MEAN PLATELET VOLUME 9.1 fL (7.4-10.4); MONOCYTES 8.9 % (2-11); NEUTROPHILS 67.3 % (40-80); PLATELET COUNT 254 10x3/uL (130-400); RBC 4.73 10x6/uL (4.00-5.40); RDW 15.6 % (11.5-14.5); WBC 5.2 10x3/uL (4.8-10.8)
[2020-12-12 14:28] LABS: CALC OSMOLALITY 284 mosm/kg (275-300); CALCIUM 8.7 mg/dL (8.5-10.1); CARBON DIOXIDE 25.4 mmol/L (21.0-32.0); CHLORIDE - SERUM 108 mmol/L (98-107); CREATININE - SERUM 0.9 mg/dL (0.6-1.3); GLUCOSE 118 mg/dL (74-106); POTASSIUM - SERUM 4.3 mmol/L (3.5-5.1); SODIUM 143 mmol/L (136-145); UREA NITROGEN 9 mg/dL (7-18); eGFR NON AFRICAN AMERICAN 79 mL/min (90-120)
[2020-12-12 14:34] LABS: ALBUMIN 3.6 g/dL (3.4-5.0); ALKALINE PHOSPHATASE 66 U/L (30-120); ALT (SGPT) 44 U/L (10-68); BILIRUBIN - TOTAL 0.32 mg/dL (0.2-1.3); LIPASE 155 U/L (73-393); PROTEIN - SERUM 7.2 g/dL (6.4-8.2)
[2020-12-12] MEDS ORDERED: BENTYL 20 MG TA20 MG PO (20:55)
[2020-12-12] MEDS ORDERED: ZOFRAN ODT4 MG/UDTAB PO (20:55)
[2020-12-12] MEDS ORDERED: CHRONULAC30 ML PO (20:55)
[2020-12-12 21:56] LABS: HCG SERUM NEGATIVE (NEGATIVE)
[2020-12-13 00:02] VITALS: BP 127/71
== END 2020-12-13 05:20 | disposition home or self-care (01) ==
LOC: D.ER 12:42
PROVIDERS: Family Medicine
DX: R10.9 Unspecified abdominal pain (principal); K59.00 Constipation, unspecified; E11.65 Type 2 diabetes mellitus with hyperglycemia; I10 Essential (primary) hypertension; R11.0 Nausea